=== PATIENT | male | born 1985 | race Caucasian/White ===

== ENCOUNTER 2016-09-05 07:19 | Inpatient (IN) | payer SELFPAY ==
[2016-09-05] VITALS (11 sets, daily range): BP systolic 104–122; BP diastolic 61–70; PULSE 77–124; RESP 12–20; TEMP 93.4–99.3; O2SAT 100
[~2016-09-05] VITALS: Ht 175.3 cm; Wt 63.4 kg
[~2016-09-05 07:19] MED LIST: CYCL-36 PO; DARV PO; Z.0.NO CURRENT MEDS
[2016-09-05] MEDS ORDERED: PROPOFOL 1000 MG/100 ML INJ 100 ML ONE (07:25)
[2016-09-05] MEDS ORDERED: GENTAMICIN 80 MG PREMIX 100 ML ONE (07:25)
[2016-09-05] MEDS ORDERED: ceFAZolin 2 GM PREMIX 50 ML ONE (07:25)
[2016-09-05] MEDS ORDERED: DIPHTH/TETANUS/ACEL PERTUSSIS (BOOSTER) 0.5 ML VIAL/PFS IM ONE (07:25)
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
[2016-09-05 07:53] LABS: AUTOMATED NEUTROPHIL # 22.5 TH/MM3 (1.8-7.7); BASOPHIL # 0.1 TH/MM3 (0-0.2); BASOPHIL % 0.5 % (0.0-2.0); EOSINOPHIL # 0.3 TH/MM3 (0-0.4); EOSINOPHIL % 0.9 % (0.0-4.0); HEMATOCRIT 35.6 % (39.0-51.0); HEMO FLAGS DIFF FINAL; LYMPH % 11.4 % (9.0-44.0); LYMPHOCYTE # 3.1 TH/MM3 (1.0-4.8); MEAN CELL VOLUME 87.2 FL (80.0-100.0); MEAN CORPUSCULAR HEMOGLOBIN 28.1 PG (27.0-34.0); MEAN CORPUSCULAR HGB CONC 32.3 % (32.0-36.0); MONO % 4.6 % (0.0-8.0); NEUT % 82.6 % (16.0-70.0); PLATELET COUNT 308 TH/MM3 (150-450); RED BLOOD COUNT 4.08 MIL/MM3 (4.50-5.90); RED CELL DISTRIBUTION WIDTH 14.9 % (11.6-17.2); WHITE BLOOD COUNT 27.3 TH/MM3 (4.0-11.0)
[2016-09-05 07:55] LABS: I-STAT POTASSIUM 3.6 MMOL/L (3.5-4.9)
[2016-09-05 07:59] LABS: APTT (PATIENT) 23.3 SEC (24.3-30.1)
[2016-09-05] MEDS ORDERED: IOHEXOL 350 MG/ML 10 ML VIAL (for RAD DIAG) IV ONE (08:12)
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
[2016-09-05] MEDS ORDERED: GENTAMICIN SULFATE 80 MG/2 ML VIAL IRRIGATION ONE (10:25)
[2016-09-05] MEDS ORDERED: GENTAMICIN SULFATE 80 MG/2 ML VIAL ONE (10:37)
[2016-09-05] MEDS ORDERED: ACETAMINOPHEN 1000 MG/100 ML VIAL IV ONE (10:37)
[2016-09-05] MEDS ORDERED: KETAMINE HCL 500 MG/5 ML VIAL ONE (10:37)
[2016-09-05 10:43] LABS: BLOOD GAS BASE EXCESS -6.5 mmol/L (-2-2); BLOOD GAS CARBOXYHEMOGLOBIN 1.8 % (0-4); BLOOD GAS HCO3 19 mmol/L (22-26); BLOOD GAS METHEMOGLOBIN 1.5 % (0-2); BLOOD GAS O2 HGB SATURATION 96 % (90-100); BLOOD GAS OXYGEN CONTENT 11.7 Vol % (12.0-20.0); BLOOD GAS PCO2 44 mmHg (38-42); BLOOD GAS PO2 336 mmHg (61-120); CRITICAL VALUE YES; OXYGEN DEVICE OR; TEMP CORR TO 98.6
[2016-09-05 10:44] LABS: STAT YES; VENT SETTINGS OR
[2016-09-05] MEDS ORDERED: PROPOFOL 200 MG/20 ML AMP IV ONE (10:49)
[2016-09-05] MEDS ORDERED: PHENYLEPH/NS 1000 MCG/10 ML SYR IV ONE (10:49)
[2016-09-05] MEDS ORDERED: PHENYLEPHRINE HCL 10 MG/ML VIAL IV ONE (10:49)
[2016-09-05] MEDS ORDERED: LACTATED RINGER'S 1000 ML INJ 2,000 ML IV ONE (10:49)
[2016-09-05] MEDS ORDERED: NORMOSOL R INJ 1,000 ML IV ONE (10:50)
[2016-09-05] MEDS ORDERED: BACITRACIN TOP OINT 15 GM TUBE ONE (11:05)
[2016-09-05 11:12] LABS: BLOOD GAS BASE EXCESS -5.7 mmol/L (-2-2); BLOOD GAS CARBOXYHEMOGLOBIN 1.8 % (0-4); BLOOD GAS HCO3 20 mmol/L (22-26); BLOOD GAS METHEMOGLOBIN 1.3 % (0-2); BLOOD GAS O2 HGB SATURATION 96 % (90-100); BLOOD GAS OXYGEN CONTENT 12.1 Vol % (12.0-20.0); BLOOD GAS PCO2 42 mmHg (38-42); BLOOD GAS PO2 234 mmHg (61-120); BLOOD GAS TOTAL HGB 8.5 G/DL (12.0-16.0); CRITICAL VALUE YES; TEMP CORR TO 98.6
[2016-09-05 11:13] LABS: DRAW SITE ALINE; FIO2 70 %; OXYGEN DEVICE ANESTHESIA; STAT YES
[2016-09-05 11:26] LABS: HEMATOCRIT 26.3 % (39.0-51.0); MEAN CORPUSCULAR HEMOGLOBIN 28.5 PG (27.0-34.0); MEAN CORPUSCULAR HGB CONC 32.8 % (32.0-36.0); PLATELET COUNT 218 TH/MM3 (150-450); RED BLOOD COUNT 3.02 MIL/MM3 (4.50-5.90); RED CELL DISTRIBUTION WIDTH 14.4 % (11.6-17.2); REVIEW FLAG FINAL; WHITE BLOOD COUNT 17.9 TH/MM3 (4.0-11.0)
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
[2016-09-05] MEDS ORDERED: SODIUM CHLORIDE 0.9% FLUSH 10 ML FLUSH IV FLUSH PRN (12:15)
[2016-09-05] MEDS ORDERED: Post-op Orders (for Pharmacy) MISC XX ONE (12:15)
[2016-09-05] MEDS ORDERED: NALOXONE HCL 0.4 MG/ML AMP IV PRN (12:15)
[2016-09-05] MEDS: SODIUM CHLOR 0.9% 1000 ML INJ 1,000 ML IV SCH ×2 (12:15→22:55)
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
[2016-09-05] MEDS: D5-1/2 NS + KCL 20 MEQ INJ 1,000 ML IV SCH ×2 (12:49→21:19)
[2016-09-05] MEDS: PANTOPRAZOLE SODIUM 40 MG VIAL IV SCH (12:53)
[2016-09-05] MEDS: fentaNYL DRIP 250 ML IV SCH (12:54)
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
--- NOTE | 2016-09-05 15:13 | RADRPT ---
EXAM DATE/TIME: 09/05/2016 11:10 [facility] COMPARISON: FEMUR LEFT (1 VW), September 05, 2016, 7:15. TIBIA/FIBULA LEFT (1 VW), September 05, 2016, 11:10. INDICATIONS : External fixator, left distal femur. MEDICAL HISTORY : None. SURGICAL HISTORY : None. ENCOUNTER: Subsequent ACUITY: 1 day PAIN SCORE: Non-responsive. LOCATION: Left leg. FINDINGS: A single limited lateral view of the left distal femur demonstrates the comminuted fracture of the le ft distal femur. Skin maday are noted within the soft tissues. CONCLUSION: Comminuted fracture involving the left distal femur. Segundo Hermosillo MD on September 05, 2016 at 15:09 Board Certified Radiologist. This report was verified electronically.
--- NOTE | 2016-09-05 15:18 | RADRPT ---
EXAM DATE/TIME: 09/05/2016 11:10 [facility] COMPARISON: TIBIA/FIBULA LEFT (1 VW), September 05, 2016, 7:15. INDICATIONS : External fixator, left tibia. MEDICAL HISTORY : None. SURGICAL HISTORY : None. ENCOUNTER: Subsequent ACUITY: 1 day PAIN SCORE: Non-responsive. LOCATION: Left tibia. FINDINGS: A single limited fluoroscopic view of the comminuted fracture of the left mid tibia is noted. CONCLUSION: 1... Comminuted fracture involving the left mid tibia. Segundo Hermosillo MD on September 05, 2016 at 15:11 Board Certified Radiologist. This report was verified electronically.
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
[2016-09-05] MEDS: ceFAZolin 2 GM PREMIX 50 ML IV SCH ×2 (15:57→23:24)
[2016-09-05] MEDS ORDERED: fentaNYL CITRATE 250 MCG/5 ML AMP ONE (16:00)
[2016-09-05] MEDS: GENTAMICIN 80 MG PREMIX 100 ML IV SCH ×2 (16:25→23:25)
[2016-09-05] MEDS ORDERED: RESP: ALBUTEROL 2.5 MG/IPRATROPIUM 0.5 MG NEB (PRN) NEB (16:45)
[2016-09-05 17:17] LABS: HEMATOCRIT 35.6 % (39.0-51.0); REVIEW FLAG FINAL
[2016-09-05] MEDS: PROPOFOL 1000 MG/100 ML INJ 100 ML IV SCH (21:17)
[2016-09-05] MEDS: SODIUM CHLORIDE 0.9% FLUSH 10 ML FLUSH IV FLUSH SCH (21:17)
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
[2016-09-06] VITALS (17 sets, daily range): BP systolic 101–151; BP diastolic 57–88; PULSE 105–126; RESP 13–20; TEMP 98.6–100.2; O2SAT 93–100
[2016-09-06 02:35] LABS: HEMATOCRIT 34.4 % (39.0-51.0); REVIEW FLAG FINAL
[2016-09-06] MEDS: fentaNYL DRIP 250 ML IV SCH (02:40)
[2016-09-06] MEDS: PROPOFOL 1000 MG/100 ML INJ 100 ML IV SCH (02:40)
[2016-09-06 05:21] LABS: AUTOMATED NEUTROPHIL # 11.3 TH/MM3 (1.8-7.7); BASOPHIL % 0.2 % (0.0-2.0); EOSINOPHIL # 0.1 TH/MM3 (0-0.4); HEMATOCRIT 33.4 % (39.0-51.0); HEMO FLAGS DIFF FINAL; LYMPH % 14.7 % (9.0-44.0); LYMPHOCYTE # 2.2 TH/MM3 (1.0-4.8); MEAN CELL VOLUME 86.5 FL (80.0-100.0); MEAN CORPUSCULAR HEMOGLOBIN 29.2 PG (27.0-34.0); MEAN CORPUSCULAR HGB CONC 33.8 % (32.0-36.0); MONO % 7.9 % (0.0-8.0); NEUT % 76.2 % (16.0-70.0); PLATELET COUNT 188 TH/MM3 (150-450); RED BLOOD COUNT 3.86 MIL/MM3 (4.50-5.90); WHITE BLOOD COUNT 14.8 TH/MM3 (4.0-11.0)
[2016-09-06 05:28] LABS: BICARBONATE 23.1 MEQ/L (21.0-32.0); POTASSIUM 4.3 MEQ/L (3.5-5.1)
[2016-09-06 05:34] LABS: INDIRECT BILIRUBIN 0.1 MG/DL (0.0-0.8); TOTAL BILIRUBIN ADULT 0.2 MG/DL (0.2-1.0)
[2016-09-06] MEDS: ceFAZolin 2 GM PREMIX 50 ML IV SCH ×3 (07:00→23:18)
[2016-09-06] MEDS: GENTAMICIN 80 MG PREMIX 100 ML IV SCH ×3 (07:00→23:18)
--- NOTE | 2016-09-06 07:10 | PD.ORT.PN ---
Subjective Subjective Remarks Patient is intubated and sedated. Appears comfortable. An skeletal traction. Objective Vitals Vital Signs Date Time Temp Pulse Resp B/P Pulse Ox O2 Delivery O2 Flow Rate FiO2 09/06/16 06:00 114 09/06/16 04:07 100 45 09/06/16 04:00 99.3 116 20 101/62 100 09/06/16 04:00 50 09/06/16 04:00 116 09/06/16 02:00 125 09/06/16 01:08 100 45 09/06/16 00:00 100.0 126 20 104/62 100 09/06/16 00:00 126 09/06/16 00:00 50 09/05/16 22:00 124 09/05/16 20:00 111 09/05/16 20:00 99.3 112 20 104/61 100 09/05/16 20:00 50 09/05/16 19:43 100 45 09/05/16 19:00 100 Mechanical Ventilator 50 09/05/16 18:00 111 09/05/16 16:00 97.5 108 20 110/70 100 09/05/16 16:00 100 Mechanical Ventilator 50 09/05/16 16:00 108 09/05/16 15:56 100 50 09/05/16 14:00 89 09/05/16 12:30 93.4 77 12 122/67 100 09/05/16 12:29 100 50 09/05/16 07:50 100 60 09/05/16 07:30 100 15.00 98 I/O 09/05/16 09/05/16 09/05/16 09/06/16 09/06/16 09/06/16 07:00 15:00 23:00 07:00 15:00 23:00 Intake Total 206 ml 1069 ml 1118 ml Output Total 675 ml 525 ml 410 ml Balance -469 ml 544 ml 708 ml Intake IV Total 206 ml 1069 ml 1118 ml Output Urine Total 560 ml 400 ml 300 ml Gastric Drainage Total 100 ml 100 ml 100 ml Chest Tube Drainage Total 15 ml 25 ml 10 ml Result Diagram: 09/06/16 0445 09/06/16 0445 Other Results Laboratory Tests Test 09/05/16 07:20 Prothrombin Time 11.0 SEC (9.8-11.6) Prothromb Time International 1.0 RATIO Ratio Imaging Last 24 hours Impressions Thoracic Spine CT 09/05/16743 Signed Impressions: Service Date/Time: Monday, September 05, 2016 07:53 - CONCLUSION: Old compression deformity of L1. No evidence of acute bony injury. Subcutaneous emphysema within the right side along the back. Malik De La Garza MD Lumbar Spine CT 09/05/16743 Signed Impressions: Service Date/Time: Monday, September 05, 2016 07:53 - CONCLUSION: Old compression deformity of L1. No acute bony abnormality. Malik De La Garza MD Head CT 09/05/16743 Signed Impressions: Service Date/Time: Monday, September 05, 2016 07:47 - CONCLUSION: No evidence of acute intracranial trauma Intact skull Malik De La Garza MD Cervical Spine CT 09/05/16743 Signed Impressions: Service Date/Time: Monday, September 05, 2016 07:49 - CONCLUSION: Normal CT of the cervical spine. No evidence of significant soft tissue or bony trauma. Malik De La Garza MD Chest CT 09/05/16721 Signed Impressions: Service Date/Time: Monday, September 05, 2016 07:53 - CONCLUSION: 1. Soft tissue injury with a large laceration along the right lateral chest wall. Large foreign body is identified within the defect. 2. Minimal airspace disease left lung base. 3. No other significant soft tissue injury. 4. Intact osseous structures. Malik De La Garza MD Abdomen/Pelvis CT 09/05/16721 Signed Impressions: Service Date/Time: Monday, September 05, 2016 07:47 - CONCLUSION: 1. Hyperdense focus in the right hepatic lobe beneath the dome of the diaphragm most characteristic of a small hemangioma. Focal contrast extravasation cannot be completely excluded however there are no other surrounding traumatic changes. 2. Large soft tissue defect with associated subcutaneous cutaneous emphysema along the right lateral chest wall consistent with laceration and tissue injury. Small foreign bodies are seen. 3. Intertrochanteric fracture of the proximal left femur. 4. No other evidence of significant soft tissue or bony trauma Malik De La Garza MD Objective Remarks Left leg: An skeletal traction. External fixator in place. Pin sites clean. Dressings dry. dorsalis pedis pulse palpable.. Right leg: In long leg splint. Calf and thigh compartments soft. Good capillary refill right foot. Assessment & Plan Assessment and Plan Left hip intertrochanteric fracture--continue skeletal traction, we'll plan on intramedullary nail fixation or Sunday Open left distal femur fracture--continue IV antibiotics, will need open reduction internal fixation next week Open left tibia shaft fracture--- continue IV antibiotics--will need intramedullary nail fixation Closed right tibia shaft fracture--plan in spite of the nail fixation or Sunday Bill Esteves MD Sep 06, 2016 07:10
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
[2016-09-06] MEDS ORDERED: MAGNESIUM OXIDE 400 MG TAB PO PRN (07:15)
[2016-09-06] MEDS ORDERED: POTASSIUM CHLOR 40 MEQ PREMIX 100 ML IV PRN ×2 (07:15)
[2016-09-06] MEDS ORDERED: POTASSIUM PHOSPHATE INJ 30 MMOL in SODIUM CHLOR 0.9% 250 ML INJ 250 ML IV PRN (07:15)
[2016-09-06] MEDS ORDERED: POTASSIUM CHLOR 20 MEQ PREMIX 100 ML IV PRN ×2 (07:15)
[2016-09-06] MEDS ORDERED: POTASSIUM PHOSPHATE MONOBASIC 500 MG TAB PO/TUBE PRN (07:15)
[2016-09-06] MEDS ORDERED: POTASSIUM CHLORIDE 25 MEQ EFFERVESCENT TAB PO PRN (07:15)
[2016-09-06] MEDS ORDERED: MAGNESIUM SULFATE INJ 4 GM in SODIUM CHLORIDE 0.9% INJ 92 ML IV PRN (07:15)
[2016-09-06] MEDS ORDERED: MAGNESIUM SULFATE INJ 2 GM in SODIUM CHLORIDE 0.9% INJ 96 ML IV PRN (07:15)
[2016-09-06] MEDS ORDERED: SODIUM PHOSPHATE INJ 30 MMOL in SODIUM CHLOR 0.9% 250 ML INJ 240 ML IV PRN (07:15)
[2016-09-06] MEDS ORDERED: POTASSIUM PHOSPHATE MONOBASIC 500 MG TAB PO PRN (07:15)
[2016-09-06] MEDS: D5-1/2 NS + KCL 20 MEQ INJ 1,000 ML IV SCH ×2 (07:19→18:00)
[2016-09-06] MEDS ORDERED: SODIUM CHLOR 0.9% 1000 ML INJ 1,000 ML IV ONE (07:45)
[2016-09-06 07:50] LABS: AMPHETAMINE, URINE POS (NEG); BARBITURATES, URINE NEG (NEG); COCAINE, URINE NEG (NEG)
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
[2016-09-06] MEDS: THIAMINE HCL 100 MG TAB PO SCH (08:19)
[2016-09-06] MEDS: FOLIC ACID 1 MG TAB PO SCH (08:19)
[2016-09-06] MEDS: PIPERACIL-TAZO 3.375 GM PREMIX 50 ML IV SCH ×3 (08:19→20:43)
[2016-09-06] MEDS: SODIUM CHLORIDE 0.9% FLUSH 10 ML FLUSH IV FLUSH SCH ×2 (08:20→20:54)
[2016-09-06] MEDS: DOCUSATE SODIUM 100 MG/10 ML UDC PO SCH ×2 (08:20→20:54)
[2016-09-06] MEDS ORDERED: MIDAZOLAM HCL 5 MG/ML VIAL (1 ML) ONE (10:19)
[2016-09-06] MEDS ORDERED: ENOXAPARIN SODIUM 30 MG/0.3 ML SYRINGE SQ SCH (11:00)
[2016-09-06] MEDS ORDERED: MIDAZOLAM HCL 5 MG/ML VIAL (1 ML) IV PUSH ONE (11:15)
[2016-09-06] MEDS ORDERED: NALOXONE HCL 0.4 MG/ML AMP IV PRN (13:45)
[2016-09-06] MEDS ORDERED: diphenhydrAMINE HCL 50 MG/ML VIAL IV PRN (14:00)
[2016-09-06] MEDS: PCA - TOTAL MG DILAUDID DELIVERED PER SHIFT OTHER SCH ×2 (14:00→22:00)
[2016-09-06] MEDS: PANTOPRAZOLE SODIUM 40 MG VIAL IV SCH (14:09)
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
[2016-09-06] MEDS: HYDROmorphone HCL PCA 6 MG/30 ML IV SCH ×2 (16:51→20:56)
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
[2016-09-06] MEDS ORDERED: CHLORHEXIDINE GLUCONATE 2 % 1 PACK (2 CLOTHS) TOPICAL PRN (23:15)
[2016-09-06] MEDS ORDERED: SODIUM CHLORID 0.9% 500 ML IV PRN (23:15)
[2016-09-06] MEDS ORDERED: INSULIN HUMAN REGULAR 1,000 UNITS/10 ML VIAL SQ PRN (23:15)
[2016-09-06] MEDS ORDERED: LACTATED RINGER'S 1000 ML IV PRN (23:15)
[2016-09-06] MEDS ORDERED: POVIDONE IODINE 5% (ANTISEPSIS KIT) 4 APPLICATIONS EACH NARE PRN (23:15)
[2016-09-07] VITALS (7 sets, daily range): BP systolic 120–151; BP diastolic 73–82; PULSE 111–130; RESP 16–21; TEMP 96.9–99.5; O2SAT 94–100
[2016-09-07] MEDS: HYDROmorphone HCL PCA 6 MG/30 ML IV SCH ×2 (01:23→11:24)
[2016-09-07] MEDS: PIPERACIL-TAZO 3.375 GM PREMIX 50 ML IV SCH ×5 (01:40→21:04)
[2016-09-07] MEDS: ceFAZolin 2 GM PREMIX 50 ML IV SCH ×3 (05:59→22:39)
[2016-09-07] MEDS: PCA - TOTAL MG DILAUDID DELIVERED PER SHIFT OTHER SCH ×2 (05:59→21:04)
[2016-09-07] MEDS: GENTAMICIN 80 MG PREMIX 100 ML IV SCH ×3 (05:59→22:38)
--- NOTE | 2016-09-07 06:26 | RADRPT ---
EXAM DATE/TIME: 09/07/2016 05:12 [facility] COMPARISON: CHEST SINGLE AP, September 06, 2016, 7:09. INDICATIONS : Shortness of breath MEDICAL HISTORY : None. SURGICAL HISTORY : None. ENCOUNTER: Subsequent ACUITY: 2 days PAIN SCORE: 10/10 LOCATION: Bilateral chest FINDINGS: Right IJ line is present with tip overlapping the expected region of the SVC. Chest tube is present o n the right side. No definite pneumothorax is seen for technique. Mild left lung base atelectasis and /or infiltrate is seen. Heart and mediastinum are unremarkable for technique. The rest of the examina tion has not significantly changed. CONCLUSION: Mild left lung base atelectasis and/or infiltrate is seen. Kalyan Horan MD on September 07, 2016 at 6:24 Board Certified Radiologist. This report was verified electronically.
--- NOTE | 2016-09-07 06:49 | PD.ORT.PN ---
Subjective Subjective Remarks Awake and alert Objective Vitals Vital Signs Date Time Temp Pulse Resp B/P Pulse Ox O2 Delivery O2 Flow Rate FiO2 09/07/16 05:59 16 09/07/16 04:30 99.3 130 21 145/74 94 09/07/16 01:53 16 09/07/16 01:23 16 09/07/16 00:30 96.9 128 20 151/79 95 09/06/16 22:00 16 09/06/16 20:56 16 09/06/16 20:30 99.5 123 18 151/88 93 09/06/16 18:02 100 Nasal Cannula 2.00 09/06/16 18:00 114 09/06/16 16:51 12 09/06/16 16:00 100.2 112 13 141/67 100 09/06/16 16:00 112 09/06/16 15:00 100 Nasal Cannula 4.00 09/06/16 14:00 111 09/06/16 12:25 100 40 09/06/16 12:00 99.7 116 20 128/66 100 09/06/16 12:00 116 09/06/16 12:00 45 09/06/16 10:00 111 09/06/16 08:08 40 09/06/16 08:00 45 09/06/16 08:00 98.6 105 20 110/57 100 09/06/16 08:00 105 09/06/16 08:00 45 09/06/16 07:17 100 45 09/06/16 07:00 100 Mechanical Ventilator 50 I/O 09/06/16 09/06/16 09/06/16 09/07/16 09/07/16 09/07/16 07:00 15:00 23:00 07:00 15:00 23:00 Intake Total 1118 ml 1906 ml 240 ml 480 ml Output Total 410 ml 645 ml 550 ml 1100 ml Balance 708 ml 1261 ml -310 ml -620 ml Intake Oral 240 ml 480 ml IV Total 1118 ml 1906 ml Output Urine Total 300 ml 625 ml 550 ml 1100 ml Gastric Drainage Total 100 ml 0 ml Chest Tube Drainage Total 10 ml 20 ml # Bowel Movements 0 0 Result Diagram: 09/06/1644409/06/16444 Imaging Last 24 hours Impressions Thoracic Spine CT 09/05/16 0744 Signed Impressions: Service Date/Time: Monday, September 05, 2016 07:53 - CONCLUSION: Old compression deformity of L1. No evidence of acute bony injury. Subcutaneous emphysema within the right side along the back. Malik De La Garza MD Lumbar Spine CT 09/05/16743 Signed Impressions: Service Date/Time: Monday, September 05, 2016 07:53 - CONCLUSION: Old compression deformity of L1. No acute bony abnormality. Malik De La Garza MD Head CT 09/05/16743 Signed Impressions: Service Date/Time: Monday, September 05, 2016 07:47 - CONCLUSION: No evidence of acute intracranial trauma Intact skull Malik De La Garza MD Cervical Spine CT 09/05/16743 Signed Impressions: Service Date/Time: Monday, September 05, 2016 07:49 - CONCLUSION: Normal CT of the cervical spine. No evidence of significant soft tissue or bony trauma. Malik De La Garza MD Chest CT 09/05/16721 Signed Impressions: Service Date/Time: Monday, September 05, 2016 07:53 - CONCLUSION: 1. Soft tissue injury with a large laceration along the right lateral chest wall. Large foreign body is identified within the defect. 2. Minimal airspace disease left lung base. 3. No other significant soft tissue injury. 4. Intact osseous structures. Malik De La Garza MD Abdomen/Pelvis CT 09/05/16721 Signed Impressions: Service Date/Time: Monday, September 05, 2016 07:47 - CONCLUSION: 1. Hyperdense focus in the right hepatic lobe beneath the dome of the diaphragm most characteristic of a small hemangioma. Focal contrast extravasation cannot be completely excluded however there are no other surrounding traumatic changes. 2. Large soft tissue defect with associated subcutaneous cutaneous emphysema along the right lateral chest wall consistent with laceration and tissue injury. Small foreign bodies are seen. 3. Intertrochanteric fracture of the proximal left femur. 4. No other evidence of significant soft tissue or bony trauma Malik De La Garza MD Objective Remarks Left leg: An skeletal traction. External fixator in place. Pin sites clean. Dressings dry. dorsalis pedis pulse palpable.. Intact sensation. No dorsiflexion or plantar flexion of foot or toes Right leg: In long leg splint. Calf and thigh compartments soft. Good capillary refill right foot. Assessment & Plan Assessment and Plan Left hip intertrochanteric fracture--continue skeletal traction, we'll plan on intramedullary nail fixation today Open left distal femur fracture--continue IV antibiotics, will need open reduction internal fixation next week Open left tibia shaft fracture--- continue IV antibiotics--will need intramedullary nail fixation Closed right tibia shaft fracture--plan in spite of the nail fixation today Nothing by mouth Hold Lovenox Sign consents Thien Mae Jr. Sep 07, 2016 06:49
[2016-09-07 08:00] LABS: AUTOMATED NEUTROPHIL # 15.3 TH/MM3 (1.8-7.7); BASOPHIL % 0.2 % (0.0-2.0); EOSINOPHIL # 0.1 TH/MM3 (0-0.4); EOSINOPHIL % 0.5 % (0.0-4.0); HEMATOCRIT 25.1 % (39.0-51.0); HEMO FLAGS DIFF FINAL; LYMPH % 11.3 % (9.0-44.0); LYMPHOCYTE # 2.2 TH/MM3 (1.0-4.8); MEAN CELL VOLUME 87.2 FL (80.0-100.0); MEAN CORPUSCULAR HEMOGLOBIN 28.8 PG (27.0-34.0); MEAN CORPUSCULAR HGB CONC 33.1 % (32.0-36.0); MONO % 8.9 % (0.0-8.0); NEUT % 79.1 % (16.0-70.0); PLATELET COUNT 164 TH/MM3 (150-450); RED BLOOD COUNT 2.88 MIL/MM3 (4.50-5.90); RED CELL DISTRIBUTION WIDTH 14.3 % (11.6-17.2); WHITE BLOOD COUNT 19.3 TH/MM3 (4.0-11.0)
[2016-09-07] MEDS ORDERED: GENTAMICIN SULFATE 80 MG/2 ML VIAL ONE (08:12)
[2016-09-07] MEDS ORDERED: BACITRACIN TOP OINT 15 GM TUBE ONE (08:12)
[2016-09-07 08:26] LABS: BICARBONATE 27.7 MEQ/L (21.0-32.0); CALCIUM-PROTEIN CORRECTED 8.5 MG/DL (8.5-10.1); MAGNESIUM 1.8 MG/DL (1.5-2.5); POTASSIUM 3.8 MEQ/L (3.5-5.1); TOTAL BILIRUBIN ADULT 0.3 MG/DL (0.2-1.0)
[2016-09-07] MEDS: DOCUSATE SODIUM 100 MG/10 ML UDC PO SCH (09:00)
[2016-09-07] MEDS: THIAMINE HCL 100 MG TAB PO SCH (09:00)
[2016-09-07] MEDS: FOLIC ACID 1 MG TAB PO SCH (09:00)
[2016-09-07] MEDS: SODIUM CHLORIDE 0.9% FLUSH 10 ML FLUSH IV FLUSH SCH ×2 (09:00→21:00)
[2016-09-07] MEDS: D5-1/2 NS + KCL 20 MEQ INJ 1,000 ML IV SCH ×5 (10:32→22:40)
--- NOTE | 2016-09-07 10:39 | PD.OP ---
Operative Report Date of Surgery: Sep 07, 2016 Preoperative Diagnosis: Displaced left hip intertrochanteric fracture, displaced right tibia shaft fracture Postoperative Diagnosis: Procedure: Reduction and intramedullary nail fixation left hip intertrochanteric fracture, reduction and intramedullary nail fixation right tibia Anesthesia: Gen. Surgeon: Bill Gaxiola An Employee Sponsor Or Advocate And(s): RUSS Smith PA-C The surgical procedure was assisted by my physician acute care nursing assistant. My P.A. presence was necessary throughout this case for the manipulation and positioning of the surgical extremity. My P.A. was assisting me throughout the duration of this procedure. The skill set of a physician acute care nursing assistant was medically necessary to complete this procedure. During the surgical case the packaging technician was working at the back table and the physician acute care nursing assistant was directly assisting me. Operation and Findings: Implants used: [10]mm 130 Synthes TFNA short troch nail, 10 mm x 345 mm tibial nail Plan of activity: Nonweightbearing left leg, weight-bear as tolerated right leg for transfers Patient was seen and evaluated preoperatively. The patient has significant hip pain from left intertrochanteric hip fracture. The risk and benefits of surgery were discussed in depth with the patient to include bleeding infection nonunion malunion and need for hip replacement painful hardware as well as medical competitions including but not stroke heart attack and . Informed consent was obtained. Operative site was marked. Patient was brought to the operating room and placed on fracture table. IV sedation was administered by anesthesiologist. Timeout procedure was performed. Hip and leg were prepped with alcohol followed by DuraPrep and draped in the usual sterile fashion. IV antibiotics were given prior to incision. Procedure began with reduction of fracture. Traction was applied. The leg was manipulated to achieve reduction. Excellent reduction was achieved. Fluoroscopy was used to confirm reduction. A three inch incision was made proximal to the trochanter. Subcutaneous tissue was dissected bluntly. Guidepin was placed at the tip of the trochanter and advanced into the femoral canal. Fluoroscopy confirmed appropriate guidepin placement. A opening reamer was placed over the guidepin. The Synthes TFNA nail was attached to the insertion handle. Nail was now placed through the tip of the trochanter into the femoral canal. Fluoroscopy confirmed appropriate nail placement. A second incision was made over the lateral thigh. Cannulas were placed through the insertion handle down to the femur. Guidepin was now placed through the femoral nail into the center of the femoral head. Fluoroscopy confirmed appropriate guidepin placement. Screw length was measured. Cannulated drill was placed over the guidepin. Appropriate length lag screw was now placed. Traction was released and compression was applied. The set screw was now tightened in dynamic mode. Using the insertion handle as a guide a distal interlocking screw was drilled and placed. Final fluoroscopy revealed well aligned fracture with well-placed hardware. Incision was closed with 3-0 Vicryl and maday. Sterile dressings were applied. Next attention was turned to the right tibia. Patient was repositioned. The right leg was prepped with alcohol Hibiclens and draped in usual sterile fashion. Timeout procedure was performed. Procedure began with reduction of fracture. Traction was applied. Fracture was manipulated and reduced. There was comminution of the fracture. The fracture reduced and excellent alignment was achieved. Next a 3 cm incision was made proximal to the patella. Quadriceps tendon was split in line with fibers. Cannulas were placed in the patellofemoral joint to protect the articular surface at all times. A guidepin was placed into the tibia and advanced in the tibial canal. Fluoroscopy was used to confirm appropriate guidepin placement. An opening reamer was used to open the tibial canal. A ball-tipped guidewire was advanced down the tibial canal. Guidepin was passed across the fracture site into the center of the distal tibia. Fluoroscopy confirmed guidepin placement. The nail length was now measured. The fracture was now held in a reduced position and the canal was reamed. The canal was reamed up to appropriate size. A Synthes nail was now selected. Next the nail was fully seated. Using perfect chippewa-cree technique 3 distal interlocking screws were placed. The nail was now gently back slapped to apply compression. Using the insertion handle as a guide 2 proximal interlocking screws were placed. Fluoroscopy confirmed excellent of fracture with well-placed hardware. Incisions and the knee joint were thoroughly irrigated with sterile saline. Fascia was closed with #1 Vicryl, subcutaneous tissues closed with 3-0 Vicryl and skin was closed with maday. Sterile dressings were applied. Patient was awakened and transferred to recovery in stable condition. Bill Gaxiola MD Sep 07, 2016 10:39
[2016-09-07] MEDS ORDERED: fentaNYL CITRATE 250 MCG/5 ML AMP ONE (11:12)
[2016-09-07] MEDS ORDERED: DO NOT ADM ANY ANTICOAGULANT DRUGS PRN (11:15)
[2016-09-07] MEDS ORDERED: PROPOFOL 200 MG/20 ML AMP IV ONE (12:00)
[2016-09-07] MEDS ORDERED: ONDANSETRON HCL 4 MG/2 ML VIAL IV PUSH ONE (12:00)
[2016-09-07] MEDS ORDERED: PHENYLEPH/NS 1000 MCG/10 ML SYR IV ONE (12:00)
[2016-09-07] MEDS ORDERED: ENOXAPARIN SODIUM 40 MG/0.4 ML SYRINGE SQ SCH (14:00)
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
[2016-09-07] MEDS: PANTOPRAZOLE SODIUM 40 MG VIAL IV SCH (14:34)
[2016-09-07] MEDS: LACTULOSE SYRUP 20 GM/30 ML CUP PO SCH (14:45)
--- NOTE | 2016-09-07 15:13 | RADRPT ---
EXAM DATE/TIME: 09/07/2016 09:36 [facility] COMPARISON: CHEST SINGLE AP, September 07, 2016, 5:12. INDICATIONS : Left hip troch nail. MEDICAL HISTORY : None. SURGICAL HISTORY : None. ENCOUNTER: Subsequent ACUITY: 3 days PAIN SCORE: Non-responsive. LOCATION: Left hip. FINDINGS: The patient is post ORIF of a left hip fracture. Alignment post fixation is excellent. CONCLUSION: 1. Excellent Alignment of the patient's left hip fracture. Hamilton Pereyra MD on September 07, 2016 at 15:10 Board Certified Radiologist. This report was verified electronically.
--- NOTE | 2016-09-07 16:16 | RADRPT ---
EXAM DATE/TIME: 09/07/2016 09:36 [facility] COMPARISON: No previous studies available for comparison. INDICATIONS : Right tibia IM nail. MEDICAL HISTORY : None. SURGICAL HISTORY : None. ENCOUNTER: Subsequent ACUITY: 3 days PAIN SCORE: Non-responsive. LOCATION: Right tibia. FINDINGS: Intramedullary kelsey and fixation screws are noted within the right tibia in good position. CONCLUSION: Status post placement of intramedullary kelsey within the right tibia which is adequate in position. Segundo Hermosillo MD on September 07, 2016 at 16:10 Board Certified Radiologist. This report was verified electronically.
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
[2016-09-07] MEDS: DOCUSATE SODIUM 50 MG/SENNA 8.6 MG TAB PO SCH (21:04)
[2016-09-08] VITALS (7 sets, daily range): BP systolic 116–145; BP diastolic 57–84; PULSE 99–122; RESP 16–20; TEMP 96.7–100; O2SAT 93–100
[2016-09-08] MEDS: HYDROmorphone HCL PCA 6 MG/30 ML IV SCH ×2 (00:50→14:08)
[2016-09-08] MEDS: PIPERACIL-TAZO 3.375 GM PREMIX 50 ML IV SCH ×2 (02:11→08:00)
[2016-09-08] MEDS: ceFAZolin 2 GM PREMIX 50 ML IV SCH ×3 (05:50→20:33)
[2016-09-08] MEDS: PCA - TOTAL MG DILAUDID DELIVERED PER SHIFT OTHER SCH ×3 (05:51→21:48)
[2016-09-08] MEDS: GENTAMICIN 80 MG PREMIX 100 ML IV SCH ×3 (05:51→23:25)
[2016-09-08 06:28] LABS: REVIEW FLAG FINAL
[2016-09-08 06:31] LABS: HEMATOCRIT 19.6 % (39.0-51.0)
--- NOTE | 2016-09-08 06:40 | RADRPT ---
EXAM DATE/TIME: 09/08/2016 05:49 [facility] COMPARISON: CHEST SINGLE AP, September 07, 2016, 5:12. INDICATIONS : Evaluate pnuemothorax, chest tubes. MEDICAL HISTORY : None. SURGICAL HISTORY : None. ENCOUNTER: Subsequent ACUITY: 3 days PAIN SCORE: 7/10 LOCATION: Bilateral chest FINDINGS: The cardiac silhouette is normal in transverse diameter. The lungs are free of acute parenchymal opac ity. No effusions are identified. A right chest tube is in place. There is no evidence of pneumothora x. There is subsegmental atelectasis in the left base. CONCLUSION: 1. There is no evidence of pneumothorax. Robert Aguilar MD on September 08, 2016 at 6:38 Board Certified Radiologist. This report was verified electronically.
--- NOTE | 2016-09-08 06:44 | PD.ORT.PN ---
Subjective Subjective Remarks Patient is awake. Appears relatively comfortable. Complains of pain in both legs. Objective Vitals Vital Signs Date Time Temp Pulse Resp B/P Pulse Ox O2 Delivery O2 Flow Rate FiO2 09/08/16 05:51 16 09/08/16 01:20 16 09/08/16 00:50 16 09/08/16 00:30 99.1 112 20 144/76 99 09/07/16 21:15 Nasal Cannula 3.00 09/07/16 21:04 18 09/07/16 20:27 96 Nasal Cannula 3.00 09/07/16 20:20 99.5 111 19 148/73 99 09/07/16 16:45 100 Nasal Cannula 3.00 09/07/16 16:00 98.0 123 16 120/80 99 09/07/16 12:10 108 14 152/85 100 Nasal Cannula 2 09/07/16 12:00 109 14 158/87 100 Nasal Cannula 3 09/07/16 12:00 98.4 111 16 149/82 98 09/07/16 11:45 110 14 155/87 100 Nasal Cannula 3 09/07/16 11:30 112 14 147/87 100 Nasal Cannula 3 09/07/16 11:24 14 09/07/16 11:15 119 14 138/94 97 Nasal Cannula 3 09/07/16 11:00 98.4 128 14 137/99 98 Nasal Cannula 4 I/O 09/07/16 09/07/16 09/07/16 09/08/16 09/08/16 09/08/16 07:00 15:00 23:00 07:00 15:00 23:00 Intake Total 480 ml 1100 ml 933 ml Output Total 1100 ml 585 ml 918 ml Balance -620 ml 515 ml 15 ml Intake Oral 480 ml 240 ml IV Total 693 ml Other 1100 ml Output Urine Total 1100 ml 525 ml 900 ml Chest Tube Drainage Total 10 ml 18 ml Estimated Blood Loss 50 ml # Bowel Movements 0 0 Result Diagram: 09/08/16 0615 09/07/16 0643 Imaging Last 24 hours Impressions Thoracic Spine CT 09/05/16 0744 Signed Impressions: Service Date/Time: Monday, September 05, 2016 07:53 - CONCLUSION: Old compression deformity of L1. No evidence of acute bony injury. Subcutaneous emphysema within the right side along the back. Malik De La Garza MD Lumbar Spine CT 09/05/16743 Signed Impressions: Service Date/Time: Monday, September 05, 2016 07:53 - CONCLUSION: Old compression deformity of L1. No acute bony abnormality. Malik De La Garza MD Head CT 09/05/16743 Signed Impressions: Service Date/Time: Monday, September 05, 2016 07:47 - CONCLUSION: No evidence of acute intracranial trauma Intact skull Malik De La Garza MD Cervical Spine CT 09/05/16743 Signed Impressions: Service Date/Time: Monday, September 05, 2016 07:49 - CONCLUSION: Normal CT of the cervical spine. No evidence of significant soft tissue or bony trauma. Malik De La Garza MD Chest CT 09/05/16721 Signed Impressions: Service Date/Time: Monday, September 05, 2016 07:53 - CONCLUSION: 1. Soft tissue injury with a large laceration along the right lateral chest wall. Large foreign body is identified within the defect. 2. Minimal airspace disease left lung base. 3. No other significant soft tissue injury. 4. Intact osseous structures. Malik De La Garza MD Abdomen/Pelvis CT 09/05/16721 Signed Impressions: Service Date/Time: Monday, September 05, 2016 07:47 - CONCLUSION: 1. Hyperdense focus in the right hepatic lobe beneath the dome of the diaphragm most characteristic of a small hemangioma. Focal contrast extravasation cannot be completely excluded however there are no other surrounding traumatic changes. 2. Large soft tissue defect with associated subcutaneous cutaneous emphysema along the right lateral chest wall consistent with laceration and tissue injury. Small foreign bodies are seen. 3. Intertrochanteric fracture of the proximal left femur. 4. No other evidence of significant soft tissue or bony trauma Malik De La Garza MD Objective Remarks Left leg: External fixator in place. Pin sites clean. Dressings dry. dorsalis pedis pulse palpable. Diminished sensation left foot. No dorsiflexion or plantar flexion of foot or toes. Calf and thigh compartments are soft Right leg: Clean dry dressings in place, Calf and thigh compartments soft. Good capillary refill right foot. Assessment & Plan Assessment and Plan Left hip intertrochanteric fracture--postop day #1 status post IM nail Closed right tibia shaft fracture--postop day #1 status post IM nail Open left distal femur fracture--continue IV antibiotics, plan irrigation and debridement and ORIF today Open left tibia shaft fracture--- continue IV antibiotics--plan irrigation and debridement and intramedullary nail fixation today Type and cross and transfuse 2 units packed red cells--check H&H in a.m. Nothing by mouth Lovenox Sign consents Bill Esteves MD Sep 08, 2016 06:44
[2016-09-08] MEDS ORDERED: TRANEXAMIC ACID INJ 0 MG in SODIUM CHLORIDE 0.9% INJ 100 ML IV ONE (06:45)
[2016-09-08] MEDS ORDERED: GENTAMICIN SULFATE 80 MG/2 ML VIAL ONE (07:14)
[2016-09-08] MEDS ORDERED: TRANEXAMIC ACID INJ 885 MG in SODIUM CHLORIDE 0.9% INJ 100 ML IV SCH (07:30)
[2016-09-08] MEDS ORDERED: VANCOMYCIN HCL 1000 MG VIAL ONE (07:34)
[2016-09-08] MEDS ORDERED: TOBRAMYCIN SULFATE 1200 MG VIAL OTHER ONE (09:00)
[2016-09-08 10:09] LABS: REVIEW FLAG FINAL
[2016-09-08] MEDS ORDERED: BACITRACIN TOP OINT 15 GM TUBE ONE (10:28)
[2016-09-08] MEDS ORDERED: Post-op Orders (for Pharmacy) MISC XX ONE (10:30)
[2016-09-08] MEDS ORDERED: SODIUM CHLORIDE 0.9% FLUSH 5 ML FLUSH IVF PRN (10:30)
--- NOTE | 2016-09-08 10:33 | RADRPT ---
EXAM DATE/TIME: 09/08/2016 08:40 [facility] COMPARISON: No previous studies available for comparison. INDICATIONS : Open reduction internal fixation left tibia. MEDICAL HISTORY : None. SURGICAL HISTORY : None. ENCOUNTER: Initial ACUITY: 1 day PAIN SCORE: Non-responsive. LOCATION: Left Tibia/Fibula. FINDINGS: Intramedullary kelsey is present bridging the tibial fracture. Alignment anatomic. Fibular fractures a gain noted. CONCLUSION: Anatomic alignment with tibial kelsey. Aquilino Pereyra MD FACR on September 08, 2016 at 10:28 Board Certified Radiologist. This report was verified electronically.
--- NOTE | 2016-09-08 10:34 | PD.OP ---
cc: Bill Gaxiola MD Operative Report Date of Surgery: Sep 08, 2016 Preoperative Diagnosis: Open left tibial shaft fracture, open left distal femur intra-articular fracture Postoperative Diagnosis: Procedure: Removal of external fixation, Irrigation debridement left tibia shaft, intramedullary nail fixation left tibia shaft, irrigation and debridement of open left distal femur fracture, open reduction internal fixation comminuted intra-articular left distal femur fracture, and placement of antibiotic beads Anesthesia: Gen. Surgeon: Bill Gaxiola Lan Support Specialist(s): RUSS Smith PA-C The surgical procedure was assisted by my physician office clerk assistant. My P.A. presence was necessary throughout this case for the manipulation and positioning of the surgical extremity. My P.A. was assisting me throughout the duration of this procedure. The skill set of a physician office clerk assistant was medically necessary to complete this procedure. During the surgical case the surgical asst was working at the back table and the physician office clerk assistant was directly assisting me. Operation and Findings: Implants: synthes 9 mm x [360]mm tibial nail, Synthes lateral condylar plate Plan of activity: Nonweightbearing left leg, weight-bear as tolerated right leg for transfers Patient was seen and examined preoperatively. An informed consent was obtained from patient after detailed discussion of risk and benefits. Risks of surgery include bleeding, infection, painful hardware, nonunion, malunion, leg length discrepancy, need for hardware removal, and medical complications associated with anesthesia including blood clots, stroke, heart attack, and were discussed. Operative site was marked. Patient was brought to the operating room placed on or table. Patient received IV antibiotics and was given IV sedation GETA. Timeout procedure was performed At this point attention was turned towards removal of the external fixation. Clamps were loosened. Clamps and bars were removed from the pins. The pins were now removed with the drill. Operative leg was prepped with alcohol Hibiclens and draped in usual sterile fashion. Procedure began with irrigation and debridement of the tibia fracture. The traumatic lacerations were opened. Skin subcutaneous tissue and fascia were sharply debrided with scalpel. Curettes were used to debride the bone. Overall wound appeared to be very clean. 3 views of sterile saline and I used to thoroughly irrigate soft tissue and bone. Next attention was turned towards reduction of fracture. A percutaneous clamp was placed and Traction was applied. Fracture was reduced. There was comminution of the fracture. The fracture reduced and excellent alignment was achieved. Fracture clamp was used to aid in reduction. Next a 3 cm incision was made proximal to the patella. Quadriceps tendon was split in line with fibers. Cannulas were placed in the patellofemoral joint to protect the articular surface at all times. A guidepin was placed into the tibia and advanced in the tibial canal. Fluoroscopy was used to confirm appropriate guidepin placement. An opening reamer was used to open the tibial canal. A ball-tipped guidewire was advanced down the tibial canal. Guidepin was passed across the fracture site into the center of the distal tibia. Fluoroscopy confirmed guidepin placement. The nail length was now measured. The fracture was now held in a reduced position and the canal was reamed. The canal was reamed up to appropriate size. A Synthes nail was now selected. Next the nail was fully seated. Using perfect north fork technique 3 distal interlocking screws were placed. Using the insertion handle as a guide 2 proximal interlocking screws were placed. Fluoroscopy confirmed excellent of fracture with well- placed hardware. Incisions and the knee joint were thoroughly irrigated with sterile saline. Fascia was closed with #1 PDS, subcutaneous tissues closed with 3-0 PDS and skin was closed with maday. The traumatic lacerations were closed with 3-0 PDS and 3-0 nylon. Next attention was turned towards the distal femur. The traumatic laceration was opened. The previously made lateral incision was also opened. At this point the wound was thoroughly debrided. Skin subcutaneous tissue and fascia were debrided with scalpel and rongeurs. Bone was cleaned with curettes. There were several small bone fragments which were excised. Overall the wound appeared to be very clean. The wound was now thoroughly irrigated with sterile saline. Next attention was turned towards reduction and fixation of the distal femur. At this point the fracture was visualized. Traction was applied. Fracture was manipulated. There was a large fragment fractured from the lateral femoral condyle. This fragment was carefully reduced. Fracture keyed into anatomic alignment. K wires were used to hold provisional fixation. An additional 3.5 cortical lag screws placed to compress this fracture fragment. At this point the condyles were now reduced to the shaft. The metaphyseal region was severely comminuted. Traction was applied. The fracture reduced relatively well. Steinmann pins were used to hold provisional fixation. At this point attention was turned to plate placement. A lateral condylar plate was selected and attached to the insertion handle jig. The plate was placed underneath the vastus lateralis. Steinmann pins were used to hold the plate to bone. Multiplanar fluoroscopy confirmed appropriate placement of plate. Multiple 4.5 cortical screws were now placed in percutaneous fashion through the plate. The plate was compressed to bone. Multiple locking screws were now placed in the distal segment of the distal femur. Additional locking screws were placed into the femoral shaft. All screws were predrilled and premeasured for appropriate length. Final fluoroscopy revealed excellent alignment of fracture with well-placed hardware. Wound was thoroughly irrigated. Because of the open nature of the wound as well as a severely comminuted metaphyseal region, decision was made to place antibiotic beads. 10 cc of stimulant bone cement was mixed with 1 g of vancomycin and 1 g of tobramycin. Once the beads were set the beads were packed into the metaphyseal region of the fracture. Fascia was closed with #1 PDS. Subcutaneous tissue was closed with 3-0 PDS. Skin was closed with maday. Sterile dressings were applied. The patient was placed into a knee immobilizer and transferred to recovery in stable condition. Needle and sponge counts were correct. Bill Gaxiola MD Sep 08, 2016 10:34
[2016-09-08] MEDS ORDERED: DO NOT ADM ANY ANTICOAGULANT DRUGS PRN (10:59)
[2016-09-08] MEDS ORDERED: fentaNYL CITRATE 250 MCG/5 ML AMP ONE (11:05)
--- NOTE | 2016-09-08 11:09 | PD.ORT.PN ---
Subjective Subjective Remarks Awake and alert Objective Vitals Vital Signs Date Time Temp Pulse Resp B/P Pulse Ox O2 Delivery O2 Flow Rate FiO2 09/08/16 05:51 16 09/08/16 04:20 99.3 114 19 141/75 100 09/08/16 01:20 16 09/08/16 00:50 16 09/08/16 00:30 99.1 112 20 144/76 99 09/07/16 21:15 Nasal Cannula 3.00 09/07/16 21:04 18 09/07/16 20:27 96 Nasal Cannula 3.00 09/07/16 20:20 99.5 111 19 148/73 99 09/07/16 16:45 100 Nasal Cannula 3.00 09/07/16 16:00 98.0 123 16 120/80 99 09/07/16 12:10 108 14 152/85 100 Nasal Cannula 2 09/07/16 12:00 109 14 158/87 100 Nasal Cannula 3 09/07/16 12:00 98.4 111 16 149/82 98 09/07/16 11:45 110 14 155/87 100 Nasal Cannula 3 09/07/16 11:30 112 14 147/87 100 Nasal Cannula 3 09/07/16 11:24 14 09/07/16 11:15 119 14 138/94 97 Nasal Cannula 3 I/O 09/07/16 09/07/16 09/07/16 09/08/16 09/08/16 09/08/16 07:00 15:00 23:00 07:00 15:00 23:00 Intake Total 480 ml 1100 ml 933 ml 947 ml Output Total 1100 ml 585 ml 918 ml 1120 ml Balance -620 ml 515 ml 15 ml -173 ml Intake Oral 480 ml 240 ml 0 ml IV Total 693 ml 947 ml Other 1100 ml Output Urine Total 1100 ml 525 ml 900 ml 1100 ml Chest Tube Drainage Total 10 ml 18 ml 20 ml Estimated Blood Loss 50 ml # Bowel Movements 0 0 0 Result Diagram: 09/08/16 0948 09/07/16 0643 Imaging Last 24 hours Impressions Thoracic Spine CT 09/05/16 0744 Signed Impressions: Service Date/Time: Monday, September 05, 2016 07:53 - CONCLUSION: Old compression deformity of L1. No evidence of acute bony injury. Subcutaneous emphysema within the right side along the back. Malik De La Garza MD Lumbar Spine CT 09/05/16743 Signed Impressions: Service Date/Time: Monday, September 05, 2016 07:53 - CONCLUSION: Old compression deformity of L1. No acute bony abnormality. Malik De La Garza MD Head CT 09/05/16743 Signed Impressions: Service Date/Time: Monday, September 05, 2016 07:47 - CONCLUSION: No evidence of acute intracranial trauma Intact skull Malik De La Garza MD Cervical Spine CT 09/05/16743 Signed Impressions: Service Date/Time: Monday, September 05, 2016 07:49 - CONCLUSION: Normal CT of the cervical spine. No evidence of significant soft tissue or bony trauma. Malik De La Garza MD Chest CT 09/05/16721 Signed Impressions: Service Date/Time: Monday, September 05, 2016 07:53 - CONCLUSION: 1. Soft tissue injury with a large laceration along the right lateral chest wall. Large foreign body is identified within the defect. 2. Minimal airspace disease left lung base. 3. No other significant soft tissue injury. 4. Intact osseous structures. Malik De La Garza MD Abdomen/Pelvis CT 09/05/16721 Signed Impressions: Service Date/Time: Monday, September 05, 2016 07:47 - CONCLUSION: 1. Hyperdense focus in the right hepatic lobe beneath the dome of the diaphragm most characteristic of a small hemangioma. Focal contrast extravasation cannot be completely excluded however there are no other surrounding traumatic changes. 2. Large soft tissue defect with associated subcutaneous cutaneous emphysema along the right lateral chest wall consistent with laceration and tissue injury. Small foreign bodies are seen. 3. Intertrochanteric fracture of the proximal left femur. 4. No other evidence of significant soft tissue or bony trauma Malik De La Garza MD Objective Remarks Left leg: Clean dry dressings intact. Knee immobilizer in place. Distally good capillary refills in distal pulses. Right leg: Clean dry dressings in place, Calf and thigh compartments soft. Good capillary refill right foot. Assessment & Plan Assessment and Plan Left hip intertrochanteric fracture--postop day #1 status post IM nail Closed right tibia shaft fracture--postop day #1 status post IM nail Open left distal femur fracture--postop day #0 status post ORIF Open left tibia shaft fracture--- postop day #0 status post IM nail Given 2 units of packed red blood cells operatively H&H in the morning Physical therapy: right lower extremity weightbearing as tolerated for transfers only Left lower extremity: Nonweightbearing, knee immobilizer in place with no active leglifts or quad sets. Passive range of motion of knee from 0-90 Lovenox Discharge planning Orthopedic surgeries are completed this point Incentive spirometry Thien Mae Jr. Sep 08, 2016 11:09
--- NOTE | 2016-09-08 11:40 | RADRPT ---
EXAM DATE/TIME: 09/08/2016 08:40 [facility] COMPARISON: No previous studies available for comparison. INDICATIONS : Open reduction internal fixation left distal femur. MEDICAL HISTORY : None. SURGICAL HISTORY : None. ENCOUNTER: Initial ACUITY: 1 day PAIN SCORE: Non-responsive. LOCATION: Left Femur. FINDINGS: Extensive hardware is noted within the left distal femur status post ORIF of comminuted fracture. [place] rdware appears to be in good position. Hardware is also noted within the proximal femur as well as t he tibia. CONCLUSION: 1. ORIF of left distal femur comminuted fracture which appears to be successfully reduced and aligne d. Segundo Hermosillo MD on September 08, 2016 at 11:34 Board Certified Radiologist. This report was verified electronically.
[2016-09-08] MEDS ORDERED: LACTATED RINGER'S 1000 ML INJ 1,000 ML IV ONE (12:00)
[2016-09-08] MEDS ORDERED: ONDANSETRON HCL 4 MG/2 ML VIAL IV PUSH ONE (12:00)
[2016-09-08] MEDS ORDERED: PROPOFOL 200 MG/20 ML AMP IV ONE (12:00)
[2016-09-08] MEDS ORDERED: NEOSTIGMINE 3 MG/3 ML SYR IV ONE (12:00)
[2016-09-08] MEDS ORDERED: KETOROLAC TROMETHAMINE 60 MG/2 ML (IM) VIAL IM ONE (12:00)
[2016-09-08] MEDS: LACTATED RINGER'S 1000 ML INJ 1,000 ML IV SCH ×2 (12:00→23:25)
--- NOTE | 2016-09-08 13:33 | OTSOAPIP ---
TIME SESSION COMPLETED: AM/PM TREATMENT TIME: 0 MINS. CHART REVIEWED. ATTEMPTED TO SEE PATIENT FOR EVALUATION X 2 ATTEMPTS, HOWEVER PATIENT WAS OFF FLOOR FOR SURGERY. WILL PLAN TO REATTEMPT NEXT TREATMENT DAY. Therapist: GRZEGORZ WALL, OTR/L Signature on file
--- NOTE | 2016-09-08 14:01 | HHI.PR ---
Subjective Subjective Notes S/P I&D LEFT femur ORIF, LEFT tibia nail fixation I&D and IM fixation Complains of bilateral leg pain Objective Vitals/I&O Vital Signs Date Time Temp Pulse Resp B/P Pulse Ox O2 Delivery O2 Flow Rate FiO2 09/08/16 11:45 98 14 147/88 96 Room Air 09/08/16 11:15 1 09/08/16 10:57 98.3 09/06/16 12:25 40 Labs Laboratory Tests Test 09/08/16 09/08/16 09/08/16 06:15 07:20 09:48 Hemoglobin 6.6 8.3 Hematocrit 19.6 24.0 Blood Type O POSITIVE Antibody Screen NEGATIVE Crossmatch Leukocyte-Reduced Red Blood Cells Blood Bank Comment Radiology Last Impressions Chest X-Ray 09/07/16 0600 Signed Impressions: Service Date/Time: August 05:12 - CONCLUSION: Mild left lung base atelectasis and/or infiltrate is seen. Kalyan Horan MD Lower Extremity CT 09/05/16 1119 Signed Impressions: Service Date/Time: Tuesday, September 06, 2016 16:24 - CONCLUSION: Severe acute comminuted displaced fracture involving the left distal femur. Segundo Hermosillo MD Thoracic Spine CT 09/05/1644 Signed Impressions: Service Date/Time: Monday, September 05, 2016 07:53 - CONCLUSION: Old compression deformity of L1. No evidence of acute bony injury. Subcutaneous emphysema within the right side along the back. Malik De La Garza MD Lumbar Spine CT 09/05/1644 Signed Impressions: Service Date/Time: Monday, September 05, 2016 07:53 - CONCLUSION: Old compression deformity of L1. No acute bony abnormality. Malik De La Garza MD Head CT 09/05/1644 Signed Impressions: Service Date/Time: Monday, September 05, 2016 07:47 - CONCLUSION: No evidence of acute intracranial trauma Intact skull Malik De La Garza MD Cervical Spine CT 09/05/1644 Signed Impressions: Service Date/Time: Monday, September 05, 2016 07:49 - CONCLUSION: Normal CT of the cervical spine. No evidence of significant soft tissue or bony trauma. Malik De La Garza MD Chest CT 09/05/16721 Signed Impressions: Service Date/Time: Monday, September 05, 2016 07:53 - CONCLUSION: 1. Soft tissue injury with a large laceration along the right lateral chest wall. Large foreign body is identified within the defect. 2. Minimal airspace disease left lung base. 3. No other significant soft tissue injury. 4. Intact osseous structures. aMlik De La Garza MD Abdomen/Pelvis CT 09/05/16721 Signed Impressions: Service Date/Time: Monday, September 05, 2016 07:47 - CONCLUSION: 1. Hyperdense focus in the right hepatic lobe beneath the dome of the diaphragm most characteristic of a small hemangioma. Focal contrast extravasation cannot be completely excluded however there are no other surrounding traumatic changes. 2. Large soft tissue defect with associated subcutaneous cutaneous emphysema along the right lateral chest wall consistent with laceration and tissue injury. Small foreign bodies are seen. 3. Intertrochanteric fracture of the proximal left femur. 4. No other evidence of significant soft tissue or bony trauma Malik De La Garza MD Tibia/Fibula X-Ray 09/05/16 Signed Impressions: Service Date/Time: Monday, September 05, 2016 11:10 - CONCLUSION: 1... Comminuted fracture involving the left mid tibia. Segundo Hermosillo MD Pelvis X-Ray 09/05/16 Signed Impressions: Service Date/Time: Monday, September 05, 2016 07:15 - CONCLUSION: Intertrochanteric fracture of the left proximal femur. Visualized portions of pelvis appears intact. Malik De La Garza MD Knee X-Ray 09/05/16 Signed Impressions: Service Date/Time: Monday, September 05, 2016 11:10 - CONCLUSION: Comminuted fracture involving the left distal femur. Segundo Hermosillo MD Hand X-Ray 09/05/16 Signed Impressions: Service Date/Time: Monday, September 05, 2016 07:15 - CONCLUSION: Soft tissue swelling without evidence of fracture or dislocation. Malik De La Garza MD Femur X-Ray 09/05/16 Signed Impressions: Service Date/Time: Monday, September 05, 2016 07:15 - CONCLUSION: Intertrochanteric fracture of the proximal left femur. Shattered distal left femur with extensive comminuted fracture of. Knee joint remain satisfactory alignment. Malik De La Garza MD Narrative Exam GENERAL: 38 year old well-nourished, well developed male lying in bed. SKIN: Warm and dry. Multiple facial abrasions noted. HEAD: Normocephalic. ENT: No nasal bleeding or discharge. Mucous membranes pink and moist. NECK: Trachea midline. No JVD. CARDIOVASCULAR: Regular rate and rhythm. RESPIRATORY: Lungs clear to auscultation. Breath sounds equal bilaterally. RIGHT lateral CT to water seal. No air leak noted. GASTROINTESTINAL: Abdomen soft, non-tender, nondistended. + BS. MUSCULOSKELETAL: Extremities without cyanosis, +1 generalized edema. RLE BARRIE wrap. + pulses x4. NEUROLOGICAL: Sedated, arousable to voice. A/P Assessment and Plan INJURIES: Forehead laceration Chin laceration Penetrating chest trauma Closed LEFT hip intertrochanteric fracture Open LEFT distal femur fracture Open LEFT tibia fracture Closed RIGHT tibia fracture 09/05: RIGHT thoracotomy. Repair of chin and forehead laceration; I&D LEFT distal femur fx w/ IM nail; I&D, Closed reduction w/ ex-fix LEFT tibia. 09/06: Extubated. 09/07: Reduction and IM nail fixation left hip intertrochanteric fx, reduction and IM nail fixation right tibia 09/08: I&D LEFT femur ORIF, LEFT tibia nail fixation I&D and IM fixation Diet: Regular, poor appetite Pulmonary: IS, encouraged use Pain: Dilaudid LAMINATION SPINNER Activity: OOB. PT and OT ordered GI: Pepcid Bowel: Rosette-colace. Added Lactulose QD. LBM: 0 DVT: SCDs, Lovenox 40 QD Penetrating chest trauma 09/05: RIGHT thoracotomy Chest tube to water seal CXR in AM- evaluate for CT removal Closed LEFT hip intertrochanteric fx, Open LEFT distal femur fx,Open LEFT tibia fx, Closed RIGHT tibia fx Orthopedics consulted 09/05: RIGHT thoracotomy. Repair of chin and forehead laceration; I&D LEFT distal femur fx w/ IM nail; I&D, Closed reduction w/ ex-fix LEFT tibia 09/07: Reduction and IM nail fixation left hip intertrochanteric fx, reduction and IM nail fixation right tibia 09/08: I&D LEFT femur ORIF, LEFT tibia nail fixation I&D and IM fixation IV antibiotics: Ancef. Gentamicin. Zosyn. Pain control PT - OOB NWB LLE, WBAT for transfers RLE Plan of care discussed with RN at bedside. Case management consulted to assist with discharge planning. Campbell Yoo Sep 08, 2016 14:01
[2016-09-08] MEDS: LACTULOSE SYRUP 20 GM/30 ML CUP PO SCH (14:10)
[2016-09-08] MEDS: CHOLECALCIFEROL (VIT D3) 1000 UNIT TAB PO SCH (14:11)
[2016-09-08] MEDS: ERGOCALCIFEROL (VIT D2) 50,000 UNIT CAP PO SCH (14:11)
[2016-09-08] MEDS: FOLIC ACID 1 MG TAB PO SCH (14:11)
[2016-09-08] MEDS: THIAMINE HCL 100 MG TAB PO SCH (14:11)
[2016-09-08] MEDS: FAMOTIDINE 20 MG TAB PO SCH ×2 (14:11→20:33)
[2016-09-08] MEDS: DOCUSATE SODIUM 50 MG/SENNA 8.6 MG TAB PO SCH ×2 (14:11→20:33)
[2016-09-08] MEDS: KETOROLAC TROMETHAMINE 30 MG/ML (IVP) VIAL IVP SCH ×2 (14:12→20:33)
[2016-09-08] MEDS: POLYETHYLENE GLYCOL 17 GM PKG PO SCH (17:32)
[2016-09-08] MEDS: SODIUM CHLORIDE 0.9% FLUSH 5 ML FLUSH IVF SCH (20:33)
[2016-09-09 04:10] VITALS: BP 133/63; PULSE 119; RESP 19; TEMP 99.5; O2SAT 93
[2016-09-09] MEDS: PCA - TOTAL MG DILAUDID DELIVERED PER SHIFT OTHER SCH ×3 (05:02→20:56)
[2016-09-09] MEDS: KETOROLAC TROMETHAMINE 30 MG/ML (IVP) VIAL IVP SCH (05:02)
[2016-09-09] MEDS: ceFAZolin 2 GM PREMIX 50 ML IV SCH ×3 (05:02→20:55)
[2016-09-09 05:27] LABS: HEMATOCRIT 21.7 % (39.0-51.0); REVIEW FLAG FINAL
[2016-09-09] MEDS: HYDROmorphone HCL PCA 6 MG/30 ML IV SCH ×2 (07:22→18:19)
[2016-09-09 08:00] VITALS: BP 124/62; PULSE 96; RESP 18; TEMP 98; O2SAT 92
[2016-09-09] MEDS: SODIUM CHLORIDE 0.9% FLUSH 5 ML FLUSH IVF SCH ×2 (09:00→20:55)
[2016-09-09 09:54] VITALS: O2SAT 96
[2016-09-09] MEDS: FAMOTIDINE 20 MG TAB PO SCH ×2 (10:34→20:55)
[2016-09-09] MEDS: CHOLECALCIFEROL (VIT D3) 1000 UNIT TAB PO SCH (10:34)
[2016-09-09] MEDS: POLYETHYLENE GLYCOL 17 GM PKG PO SCH (10:34)
[2016-09-09] MEDS: THIAMINE HCL 100 MG TAB PO SCH (10:34)
[2016-09-09] MEDS: FOLIC ACID 1 MG TAB PO SCH (10:34)
[2016-09-09] MEDS: LACTULOSE SYRUP 20 GM/30 ML CUP PO SCH (10:34)
[2016-09-09] MEDS: DOCUSATE SODIUM 50 MG/SENNA 8.6 MG TAB PO SCH ×2 (10:34→20:55)
[2016-09-09] MEDS: GENTAMICIN 80 MG PREMIX 100 ML IV SCH ×2 (10:36→16:37)
[2016-09-09] MEDS: ENOXAPARIN SODIUM 30 MG/0.3 ML SYRINGE SQ SCH ×2 (10:43→20:55)
[2016-09-09 12:00] VITALS: BP 137/79; PULSE 104; RESP 18; TEMP 96.8; O2SAT 98
--- NOTE | 2016-09-09 12:34 | PD.ORT.PN ---
Subjective Subjective Remarks doing well. no c/o. Objective Vitals Vital Signs Date Time Temp Pulse Resp B/P Pulse Ox O2 Delivery O2 Flow Rate FiO2 09/09/16 09:54 96 Nasal Cannula 4.00 09/09/16 08:00 98.0 96 18 124/62 92 09/09/16 04:10 99.5 119 19 133/63 93 09/08/16 23:20 98.0 110 19 125/62 94 09/08/16 20:20 100.0 122 19 137/65 93 09/08/16 17:33 96 Nasal Cannula 1.00 09/08/16 16:00 97.0 112 16 116/57 93 09/08/16 14:08 14 09/08/16 14:00 14 I/O 09/08/16 09/08/16 09/08/16 09/09/16 09/09/16 09/09/16 07:00 15:00 23:00 07:00 15:00 23:00 Intake Total 947 ml 240 ml 823 ml 563 ml Output Total 1120 ml 658 ml 450 ml 697 ml Balance -173 ml -418 ml 373 ml -134 ml Intake Oral 0 ml 240 ml 480 ml 240 ml IV Total 947 ml 0 ml 343 ml 323 ml Output Urine Total 1100 ml 650 ml 450 ml 675 ml Chest Tube Drainage Total 20 ml 8 ml 0 ml 22 ml # Bowel Movements 0 0 0 0 Result Diagram: 09/09/1612 09/07/16 0643 Imaging Last 24 hours Impressions Thoracic Spine CT 09/05/16743 Signed Impressions: Service Date/Time: Monday, September 05, 2016 07:53 - CONCLUSION: Old compression deformity of L1. No evidence of acute bony injury. Subcutaneous emphysema within the right side along the back. Malik De La Garza MD Lumbar Spine CT 09/05/16743 Signed Impressions: Service Date/Time: Monday, September 05, 2016 07:53 - CONCLUSION: Old compression deformity of L1. No acute bony abnormality. Malik De La Garza MD Head CT 09/05/16743 Signed Impressions: Service Date/Time: Monday, September 05, 2016 07:47 - CONCLUSION: No evidence of acute intracranial trauma Intact skull Malik De La Garza MD Cervical Spine CT 09/05/16743 Signed Impressions: Service Date/Time: Monday, September 05, 2016 07:49 - CONCLUSION: Normal CT of the cervical spine. No evidence of significant soft tissue or bony trauma. Malik De La Garza MD Chest CT 09/05/16721 Signed Impressions: Service Date/Time: Monday, September 05, 2016 07:53 - CONCLUSION: 1. Soft tissue injury with a large laceration along the right lateral chest wall. Large foreign body is identified within the defect. 2. Minimal airspace disease left lung base. 3. No other significant soft tissue injury. 4. Intact osseous structures. Malik De La Garza MD Abdomen/Pelvis CT 09/05/16721 Signed Impressions: Service Date/Time: Monday, September 05, 2016 07:47 - CONCLUSION: 1. Hyperdense focus in the right hepatic lobe beneath the dome of the diaphragm most characteristic of a small hemangioma. Focal contrast extravasation cannot be completely excluded however there are no other surrounding traumatic changes. 2. Large soft tissue defect with associated subcutaneous cutaneous emphysema along the right lateral chest wall consistent with laceration and tissue injury. Small foreign bodies are seen. 3. Intertrochanteric fracture of the proximal left femur. 4. No other evidence of significant soft tissue or bony trauma Malik De La Garza MD Objective Remarks Left leg: Clean dry dressings intact. Knee immobilizer in place. Distally good capillary refills in distal pulses. Right leg: Clean dry dressings in place, Calf and thigh compartments soft. Good capillary refill right foot. Assessment & Plan Assessment and Plan Left hip intertrochanteric fracture--postop day #2 status post IM nail Closed right tibia shaft fracture--postop day #2 status post IM nail Open left distal femur fracture--postop day #1 status post ORIF Open left tibia shaft fracture--- postop day #1 status post IM nail Hb 7.6 s/p PRBC Physical therapy: right lower extremity weightbearing as tolerated for transfers only Left lower extremity: Nonweightbearing, knee immobilizer in place with no active leglifts or quad sets. Passive range of motion of knee from 0-90 Lovenox Discharge planning Orthopedic surgeries are completed this point Incentive spirometry Sergei Landrum Jr., MD Sep 09, 2016 12:34
[2016-09-09] MEDS: LACTATED RINGER'S 1000 ML INJ 1,000 ML IV SCH (13:00)
--- NOTE | 2016-09-09 14:08 | HHI.PR ---
Subjective Subjective Notes OOB in chair No complaints Received 2 PRBCs yesterday for Hgb 6.6 Objective Vitals/I&O Vital Signs Date Time Temp Pulse Resp B/P Pulse Ox O2 Delivery O2 Flow Rate FiO2 09/09/16 13:52 18 09/09/16 12:00 96.8 104 137/79 98 09/09/16 10:40 Nasal Cannula 4.00 09/06/16 12:25 40 Labs Laboratory Tests Test 09/09/16 05:12 Hemoglobin 7.6 Hematocrit 21.7 Radiology Last Impressions Chest X-Ray 09/07/16 0600 Signed Impressions: Service Date/Time: August 05:12 - CONCLUSION: Mild left lung base atelectasis and/or infiltrate is seen. Kalyan Horan MD Lower Extremity CT 09/05/16 1119 Signed Impressions: Service Date/Time: Tuesday, September 06, 2016 16:24 - CONCLUSION: Severe acute comminuted displaced fracture involving the left distal femur. Segundo Hermosillo MD Thoracic Spine CT 09/05/1644 Signed Impressions: Service Date/Time: Monday, September 05, 2016 07:53 - CONCLUSION: Old compression deformity of L1. No evidence of acute bony injury. Subcutaneous emphysema within the right side along the back. Malik De La Garza MD Lumbar Spine CT 09/05/1644 Signed Impressions: Service Date/Time: Monday, September 05, 2016 07:53 - CONCLUSION: Old compression deformity of L1. No acute bony abnormality. Malik De La Garza MD Head CT 09/05/1644 Signed Impressions: Service Date/Time: Monday, September 05, 2016 07:47 - CONCLUSION: No evidence of acute intracranial trauma Intact skull Malik De La Garza MD Cervical Spine CT 09/05/1644 Signed Impressions: Service Date/Time: Monday, September 05, 2016 07:49 - CONCLUSION: Normal CT of the cervical spine. No evidence of significant soft tissue or bony trauma. Malik De La Garza MD Chest CT 09/05/1622 Signed Impressions: Service Date/Time: Monday, September 05, 2016 07:53 - CONCLUSION: 1. Soft tissue injury with a large laceration along the right lateral chest wall. Large foreign body is identified within the defect. 2. Minimal airspace disease left lung base. 3. No other significant soft tissue injury. 4. Intact osseous structures. Malik De La Garza MD Abdomen/Pelvis CT 09/05/16 0722 Signed Impressions: Service Date/Time: Monday, September 05, 2016 07:47 - CONCLUSION: 1. Hyperdense focus in the right hepatic lobe beneath the dome of the diaphragm most characteristic of a small hemangioma. Focal contrast extravasation cannot be completely excluded however there are no other surrounding traumatic changes. 2. Large soft tissue defect with associated subcutaneous cutaneous emphysema along the right lateral chest wall consistent with laceration and tissue injury. Small foreign bodies are seen. 3. Intertrochanteric fracture of the proximal left femur. 4. No other evidence of significant soft tissue or bony trauma Malik De La Garza MD Tibia/Fibula X-Ray 09/05/16 0000 Signed Impressions: Service Date/Time: Monday, September 05, 2016 11:10 - CONCLUSION: 1... Comminuted fracture involving the left mid tibia. Segundo Hermosillo MD Pelvis X-Ray 09/05/16 0000 Signed Impressions: Service Date/Time: Monday, September 05, 2016 07:15 - CONCLUSION: Intertrochanteric fracture of the left proximal femur. Visualized portions of pelvis appears intact. Malik De La Garza MD Knee X-Ray 09/05/16 0000 Signed Impressions: Service Date/Time: Monday, September 05, 2016 11:10 - CONCLUSION: Comminuted fracture involving the left distal femur. Segundo Hermosillo MD Hand X-Ray 09/05/16 0000 Signed Impressions: Service Date/Time: Monday, September 05, 2016 07:15 - CONCLUSION: Soft tissue swelling without evidence of fracture or dislocation. Malik De La Garza MD Femur X-Ray 09/05/16 0000 Signed Impressions: Service Date/Time: Monday, September 05, 2016 07:15 - CONCLUSION: Intertrochanteric fracture of the proximal left femur. Shattered distal left femur with extensive comminuted fracture of. Knee joint remain satisfactory alignment. Malik De La Garza MD Narrative Exam GENERAL: 38 year old well-nourished, well developed male OOB in chair. SKIN: Warm and dry. Multiple facial abrasions noted. HEAD: Normocephalic. ENT: No nasal bleeding or discharge. Mucous membranes pink and moist. NECK: Trachea midline. No JVD. CARDIOVASCULAR: Regular rate and rhythm. RESPIRATORY: Lungs clear to auscultation. Breath sounds equal bilaterally. RIGHT lateral CT to water seal. No air leak noted. GASTROINTESTINAL: Abdomen soft, non-tender, nondistended. + BS. MUSCULOSKELETAL: Extremities without cyanosis, +1 generalized edema. RLE BARRIE wrap. + pulses x4. NEUROLOGICAL: Awake and alert. Speech clear. A/P Assessment and Plan INJURIES: Forehead laceration Chin laceration Penetrating chest trauma Closed LEFT hip intertrochanteric fracture Open LEFT distal femur fracture Open LEFT tibia fracture Closed RIGHT tibia fracture 09/05: RIGHT thoracotomy. Repair of chin and forehead laceration; I&D LEFT distal femur fx w/ IM nail; I&D, Closed reduction w/ ex-fix LEFT tibia. 09/06: Extubated. 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 PT and OT ordered GI: Pepcid Bowel: Rosette-colace. Added Lactulose QD. LBM: 0 DVT: SCDs, Lovenox 40 QD Penetrating chest trauma 09/05: RIGHT thoracotomy Chest tube on water seal Plan to discontinue chest tube when drainage decreases CXR is negative for pneumothorax Closed LEFT hip intertrochanteric fx, Open LEFT distal femur fx,Open LEFT tibia fx, Closed RIGHT tibia fx Orthopedics consulted 09/05: RIGHT thoracotomy. Repair of chin and forehead laceration; I&D LEFT distal femur fx w/ IM nail; I&D, Closed reduction w/ ex-fix LEFT tibia 09/07: Reduction and IM nail fixation left hip intertrochanteric fx, reduction and IM nail fixation right tibia 09/08: I&D LEFT femur ORIF, LEFT tibia nail fixation I&D and IM fixation IV antibiotics: Ancef. Gentamicin. Zosyn. Pain control PT - OOB NWB LLE, WBAT for transfers RLE Hgb 7.6 today Plan of care discussed with patient at bedside. Case management consulted to assist with discharge planning. Campbell Yoo Sep 09, 2016 14:08
[2016-09-09 15:40] VITALS: BP 143/85; PULSE 93; RESP 18; TEMP 99.7; O2SAT 100
[2016-09-09 20:00] VITALS: BP 130/74; PULSE 111; RESP 16; RESP 18; TEMP 100.3; O2SAT 95
[2016-09-10] VITALS (7 sets, daily range): BP systolic 132–153; BP diastolic 82–91; PULSE 86–100; RESP 18–20; TEMP 96.6–100.3; O2SAT 92–99
[2016-09-10] MEDS: GENTAMICIN 80 MG PREMIX 100 ML IV SCH ×2 (00:06→08:40)
[2016-09-10] MEDS: LACTATED RINGER'S 1000 ML INJ 1,000 ML IV SCH (01:15)
[2016-09-10] MEDS: ACETAMINOPHEN/HYDROcodone 325 MG/10 MG TAB PO PRN ×2 (05:15→12:26)
[2016-09-10] MEDS: ceFAZolin 2 GM PREMIX 50 ML IV SCH (05:15)
[2016-09-10] MEDS: PCA - TOTAL MG DILAUDID DELIVERED PER SHIFT OTHER SCH (05:15)
[2016-09-10] MEDS: HYDROmorphone HCL PCA 6 MG/30 ML IV SCH (05:17)
[2016-09-10] MEDS: THIAMINE HCL 100 MG TAB PO SCH (08:39)
[2016-09-10] MEDS: POLYETHYLENE GLYCOL 17 GM PKG PO SCH (08:39)
[2016-09-10] MEDS: DOCUSATE SODIUM 50 MG/SENNA 8.6 MG TAB PO SCH ×2 (08:39→21:28)
[2016-09-10] MEDS: FOLIC ACID 1 MG TAB PO SCH (08:39)
[2016-09-10] MEDS: FAMOTIDINE 20 MG TAB PO SCH (08:39)
[2016-09-10] MEDS: CHOLECALCIFEROL (VIT D3) 1000 UNIT TAB PO SCH (08:39)
[2016-09-10] MEDS: LACTULOSE SYRUP 20 GM/30 ML CUP PO SCH (08:39)
[2016-09-10] MEDS: SODIUM CHLORIDE 0.9% FLUSH 5 ML FLUSH IVF SCH ×2 (08:40→21:28)
[2016-09-10] MEDS: ENOXAPARIN SODIUM 30 MG/0.3 ML SYRINGE SQ SCH ×2 (08:40→21:24)
--- NOTE | 2016-09-10 08:54 | RADRPT ---
EXAM DATE/TIME: 09/10/2016 08:19 [facility] COMPARISON: CHEST SINGLE AP, September 08, 2016, 5:49. INDICATIONS : Short of breath. Hemothorax. MEDICAL HISTORY : None. SURGICAL HISTORY : None. ENCOUNTER: Subsequent ACUITY: 4 - 6 days PAIN SCORE: 4/10 LOCATION: Bilateral chest FINDINGS: A single view of the chest demonstrates right central line in superior vena cava. Right chest tube wi th tiny residual right pneumothorax. Minimal basilar airspace disease. No significant effusion. Heart size mildly enlarged. CONCLUSION: 1. Right chest tube with tiny right pneumothorax. Right central line in superior vena cava. Minimal b asilar airspace disease. Noel Clarke MD on September 10, 2016 at 8:50 Board Certified Radiologist. This report was verified electronically.
[2016-09-10] MEDS ORDERED: ONDANSETRON HCL 4 MG/2 ML VIAL IV PUSH PRN (09:15)
[2016-09-10] MEDS ORDERED: BISACODYL 10 MG SUPP RECTAL ONE (09:45)
[2016-09-10 10:16] LABS: AUTOMATED NEUTROPHIL # 12.8 TH/MM3 (1.8-7.7); BASOPHIL % 0.3 % (0.0-2.0); EOSINOPHIL # 0.1 TH/MM3 (0-0.4); EOSINOPHIL % 0.8 % (0.0-4.0); LYMPH % 7.1 % (9.0-44.0); LYMPHOCYTE # 1.1 TH/MM3 (1.0-4.8); MEAN CELL VOLUME 86.1 FL (80.0-100.0); MEAN CORPUSCULAR HEMOGLOBIN 29.2 PG (27.0-34.0); MEAN CORPUSCULAR HGB CONC 33.9 % (32.0-36.0); MONO % 9.2 % (0.0-8.0); NEUT % 82.6 % (16.0-70.0); PLATELET COUNT 271 TH/MM3 (150-450); RED BLOOD COUNT 2.66 MIL/MM3 (4.50-5.90); RED CELL DISTRIBUTION WIDTH 14.9 % (11.6-17.2); WHITE BLOOD COUNT 15.5 TH/MM3 (4.0-11.0)
[2016-09-10 10:17] LABS: HEMATOCRIT 23.2 % (39.0-51.0); HEMO FLAGS AUTO DIFF
[2016-09-10 11:12] LABS: BANDS 17 % (0-6); BASOPHILS 1 % (0-2); CORRECTED NUCLEATED RBC 3 /100 WBC (0-0); METAMYELOCYTES 3 % (0-1); MYELOCYTES 1 % (0-0); NEUTROPHIL # MANUAL DIFF 13.6 TH/MM3 (1.8-7.7); POLYS (SEG NEUTROPHILS) 67 % (16-70); SCAN/DIFF FINAL DIFF MANUAL; WBC DIFF SAMPLE 100
[2016-09-10] MEDS ORDERED: PROMETHAZINE HCL 25 MG SUPP RECTAL ONE (12:00)
[2016-09-10] MEDS ORDERED: SODIUM CHLOR 0.9% 1000 ML INJ 1,000 ML IV SCH ×2 (13:00)
--- NOTE | 2016-09-10 14:16 | HHI.PR ---
Subjective Subjective Notes RN reports multiple episodes of vomiting today Patient c/o abdominal pain Abdomen tense and painful with palpation Objective Vitals/I&O Vital Signs Date Time Temp Pulse Resp B/P Pulse Ox O2 Delivery O2 Flow Rate FiO2 09/10/16 09:53 96 Nasal Cannula 2.00 09/10/16 08:00 97.9 86 18 139/91 09/06/16 12:25 40 Labs Laboratory Tests Test 09/10/16 09:28 White Blood Count 15.5 Red Blood Count 2.66 Hemoglobin 7.8 Hematocrit 23.2 Mean Corpuscular Volume 86.1 Mean Corpuscular Hemoglobin 29.2 Mean Corpuscular Hemoglobin 33.9 Concent Red Cell Distribution Width 14.9 Platelet Count 271 Mean Platelet Volume 8.1 Neutrophils (%) (Auto) 82.6 Lymphocytes (%) (Auto) 7.1 Monocytes (%) (Auto) 9.2 Eosinophils (%) (Auto) 0.8 Basophils (%) (Auto) 0.3 Neutrophils # (Auto) 12.8 Lymphocytes # (Auto) 1.1 Monocytes # (Auto) 1.4 Eosinophils # (Auto) 0.1 Basophils # (Auto) 0.0 CBC Comment AUTO DIFF Differential Total Cells 100 Counted Neutrophils % (Manual) 67 Band Neutrophils % 17 Lymphocytes % 3 Monocytes % 8 Basophils % 1 Neutrophils # (Manual) 13.6 Metamyelocytes 3 Myelocytes 1 Nucleated Red Blood Cells 3 Differential Comment FINAL DIFF MANUAL Radiology Last Impressions Chest X-Ray 09/07/16 0600 Signed Impressions: Service Date/Time: August 05:12 - CONCLUSION: Mild left lung base atelectasis and/or infiltrate is seen. Kalyan Horan MD Lower Extremity CT 09/05/16 1119 Signed Impressions: Service Date/Time: Tuesday, September 06, 2016 16:24 - CONCLUSION: Severe acute comminuted displaced fracture involving the left distal femur. Segundo Hermosillo MD Thoracic Spine CT 09/05/16 2544 Signed Impressions: Service Date/Time: Monday, September 05, 2016 07:53 - CONCLUSION: Old compression deformity of L1. No evidence of acute bony injury. Subcutaneous emphysema within the right side along the back. Malik De La Garza MD Lumbar Spine CT 09/05/16 4244 Signed Impressions: Service Date/Time: Monday, September 05, 2016 07:53 - CONCLUSION: Old compression deformity of L1. No acute bony abnormality. Malik De La Garza MD Head CT 09/05/1644 Signed Impressions: Service Date/Time: Monday, September 05, 2016 07:47 - CONCLUSION: No evidence of acute intracranial trauma Intact skull Malik De La Garza MD Cervical Spine CT 09/05/16743 Signed Impressions: Service Date/Time: Monday, September 05, 2016 07:49 - CONCLUSION: Normal CT of the cervical spine. No evidence of significant soft tissue or bony trauma. Malik De La Garza MD Chest CT 09/05/16721 Signed Impressions: Service Date/Time: Monday, September 05, 2016 07:53 - CONCLUSION: 1. Soft tissue injury with a large laceration along the right lateral chest wall. Large foreign body is identified within the defect. 2. Minimal airspace disease left lung base. 3. No other significant soft tissue injury. 4. Intact osseous structures. Malik De La Garza MD Abdomen/Pelvis CT 09/05/16721 Signed Impressions: Service Date/Time: Monday, September 05, 2016 07:47 - CONCLUSION: 1. Hyperdense focus in the right hepatic lobe beneath the dome of the diaphragm most characteristic of a small hemangioma. Focal contrast extravasation cannot be completely excluded however there are no other surrounding traumatic changes. 2. Large soft tissue defect with associated subcutaneous cutaneous emphysema along the right lateral chest wall consistent with laceration and tissue injury. Small foreign bodies are seen. 3. Intertrochanteric fracture of the proximal left femur. 4. No other evidence of significant soft tissue or bony trauma Malik De La Garza MD Tibia/Fibula X-Ray 09/05/16 Signed Impressions: Service Date/Time: Monday, September 05, 2016 11:10 - CONCLUSION: 1... Comminuted fracture involving the left mid tibia. Segundo Hermosillo MD Pelvis X-Ray 09/05/16 Signed Impressions: Service Date/Time: Monday, September 05, 2016 07:15 - CONCLUSION: Intertrochanteric fracture of the left proximal femur. Visualized portions of pelvis appears intact. Malik De La Garza MD Knee X-Ray 6/13/17 0000 Signed Impressions: Service Date/Time: Monday, September 05, 2016 11:10 - CONCLUSION: Comminuted fracture involving the left distal femur. Segundo Hermosillo MD Hand X-Ray 09/05/16 0000 Signed Impressions: Service Date/Time: Monday, September 05, 2016 07:15 - CONCLUSION: Soft tissue swelling without evidence of fracture or dislocation. Malik De La Garza MD Femur X-Ray 09/05/16 0000 Signed Impressions: Service Date/Time: Monday, September 05, 2016 07:15 - CONCLUSION: Intertrochanteric fracture of the proximal left femur. Shattered distal left femur with extensive comminuted fracture of. Knee joint remain satisfactory alignment. Malik De La Garza MD Narrative Exam GENERAL: 38 year old well-nourished, well developed male lying in bed. SKIN: Warm and dry. Multiple facial abrasions noted. HEAD: Normocephalic. ENT: No nasal bleeding or discharge. Mucous membranes pink and moist. NECK: Trachea midline. No JVD. CARDIOVASCULAR: Regular rate and rhythm. RESPIRATORY: Lungs clear to auscultation. Breath sounds equal bilaterally. RIGHT lateral CT to water seal. No air leak noted. GASTROINTESTINAL: Abdomen tense, slightly distended and painful with palpation x4 quads. MUSCULOSKELETAL: Extremities without cyanosis, +1 generalized edema. RLE BARRIE wrap. + pulses x4. NEUROLOGICAL: Awake and alert. Speech clear. A/P Assessment and Plan INJURIES: Forehead laceration Chin laceration Penetrating chest trauma Closed LEFT hip intertrochanteric fracture Open LEFT distal femur fracture Open LEFT tibia fracture Closed RIGHT tibia fracture 09/05: RIGHT thoracotomy. Repair of chin and forehead laceration; I&D LEFT distal femur fx w/ IM nail; I&D, Closed reduction w/ ex-fix LEFT tibia. 09/06: Extubated. 09/07: Reduction and IM nail fixation left hip intertrochanteric fx, reduction and IM nail fixation right tibia 09/08: I&D LEFT femur ORIF, LEFT tibia nail fixation I&D and IM fixation Diet: NPO- Place NGT, keep to Pulmonary: IS, encouraged use Pain: [place], Dilaudid IV Activity: OOB. PT and OT evaluating GI: Pepcid Bowel: Rosette-colace. Lactulose QD. LBM: 0 DVT: SCDs, Lovenox 40 QD Penetrating chest trauma 09/05: RIGHT thoracotomy Chest tube on water seal Plan to discontinue chest tube when drainage decreases. CT drained 200mL overnight CXR shows small apical pneumothorax CXR in AM to eval for CT removal Closed LEFT hip intertrochanteric fx, Open LEFT distal femur fx,Open LEFT tibia fx, Closed RIGHT tibia fx Orthopedics consulted 09/05: RIGHT thoracotomy. Repair of chin and forehead laceration; I&D LEFT distal femur fx w/ IM nail; I&D, Closed reduction w/ ex-fix LEFT tibia 09/07: Reduction and IM nail fixation left hip intertrochanteric fx, reduction and IM nail fixation right tibia 09/08: I&D LEFT femur ORIF, LEFT tibia nail fixation I&D and IM fixation IV antibiotics: complete Pain control PT - OOB NWB LLE, WBAT for transfers RLE Hgb 7.8 today, Labs in AM Ileus Stat CT Abd/Pelvis- shows dilated small bowel, no evidence of perforation NPO Place NGT- keep to medium continuous suction Lactulose 60 mL 1 Enema x2 Plan of care discussed with patient and RN at bedside. Case management consulted to assist with discharge planning. Campbell Yoo Sep 10, 2016 14:16
[2016-09-10] MEDS ORDERED: IOHEXOL 350 MG/ML 10 ML VIAL (for RAD DIAG) IV ONE (14:57)
--- NOTE | 2016-09-10 15:28 | RADRPT ---
EXAM DATE/TIME: 09/10/2016 14:52 [facility] COMPARISON: CT ABDOMEN & PELVIS W CONTRAST, September 05, 2016, 7:47. INDICATIONS : Diffuse abdomen pain and vomiting today. IV CONTRAST: 72 cc Omnipaque 350 (iohexol) IV ORAL CONTRAST: No oral contrast ingested. RADIATION DOSE: 15.21 CTDIvol (mGy) MEDICAL HISTORY : None SURGICAL HISTORY : None. ENCOUNTER: Initial ACUITY: 1 day PAIN SCALE: 7/10 LOCATION: Bilateral abdomen TECHNIQUE: Volumetric scanning of the abdomen and pelvis was performed. Using automated exposure control and ad justment of the mA and/or kV according to patient size, radiation dose was kept as low as reasonably achievable to obtain optimal diagnostic quality images. FINDINGS: LOWER LUNGS: Visualized on bases demonstrate a right sided chest tube in place. There is no pneumothorax. Trace le ft pleural effusion. Bibasilar airspace consolidation. LIVER: Homogeneous density without lesion. The previously described segment 7 lesion is not well demonstrat ed due to to phase of technique and artifact from patient's arms overlying his abdomen. There is no d ilation of the biliary tree. No calcified gallstones. SPLEEN: Normal size without lesion. PANCREAS: Within normal limits. KIDNEYS: Kidneys are symmetrical in size and demonstrate symmetrical enhancement. Subcentimeter hypodense lesi on in the left kidney is too small to fully characterize. No hydronephrosis. ADRENAL GLANDS: Within normal limits. VASCULAR: There is no aortic aneurysm. BOWEL/MESENTERY: There is an NGT terminating in the distal stomach. Small bowel loops are diffusely fluid filled and m ildly dilated. No definite transition point is identified. Air and stool is seen throughout the colon extending to the rectum. There is minimal free fluid noted in the deep pelvis. ABDOMINAL WALL: Within normal limits. RETROPERITONEUM: There is no lymphadenopathy. BLADDER: Bladder is completely decompressed secondary to Domingo catheter. REPRODUCTIVE: Unremarkable INGUINAL: There is no lymphadenopathy or hernia. MUSCULOSKELETAL: Intramedullary kelsey fixation of left intertrochanteric femoral fracture. CONCLUSION: 1. Diffuse fluid-filled mildly dilated small bowel loops without a definite transition point most con sistent with moderate adynamic ileus. There is an NGT in the distal stomach. No evidence for perforat ion or bowel infarction. 2. Trace left pleural effusion with bibasilar airspace consolidation reflecting atelectasis or less l ikely contusions. 3. Trace free fluid in the deep pelvis. 1. Maximilian Orbien MD on September 10, 2016 at 15:15 Board Certified Radiologist. This report was verified electronically.
[2016-09-10] MEDS ORDERED: LACTULOSE SYRUP 20 GM/30 ML CUP PO ONE (16:15)
--- NOTE | 2016-09-10 19:00 | PD.ORT.PN ---
Subjective Subjective Remarks n/v, abd distension. no CP/SOB Objective Vitals Vital Signs Date Time Temp Pulse Resp B/P Pulse Ox O2 Delivery O2 Flow Rate FiO2 09/10/16 16:00 97.0 97 18 134/84 92 09/10/16 12:00 97.6 87 18 132/82 92 09/10/16 09:53 96 Nasal Cannula 2.00 09/10/16 08:40 99 Nasal Cannula 2.00 09/10/16 08:00 97.9 86 18 139/91 96 09/10/16 05:17 18 09/10/16 05:15 18 09/10/16 04:00 98.8 90 18 142/89 98 09/10/16 00:00 100.3 100 18 135/83 99 09/09/16 20:56 18 09/09/16 20:50 Nasal Cannula 4.00 09/09/16 20:00 18 09/09/16 20:00 100.3 111 16 130/74 95 09/09/16 20:00 Nasal Cannula 2.00 I/O 09/09/16 09/09/16 09/09/16 09/10/16 09/10/16 09/10/16 07:00 15:00 23:00 07:00 15:00 23:00 Intake Total 563 ml 1019 ml 1233 ml 691 ml Output Total 697 ml 700 ml 1140 ml 660 ml 675 ml Balance -134 ml 319 ml 93 ml 31 ml -675 ml Intake Oral 240 ml 600 ml 600 ml 120 ml IV Total 323 ml 419 ml 633 ml 571 ml Output Urine Total 675 ml 700 ml 1050 ml 550 ml 650 ml Chest Tube Drainage Total 22 ml 90 ml 110 ml 25 ml # Bowel Movements 0 0 0 0 0 Result Diagram: 09/10/1628 09/07/16 0643 Imaging Last 24 hours Impressions Thoracic Spine CT 09/05/16743 Signed Impressions: Service Date/Time: Monday, September 05, 2016 07:53 - CONCLUSION: Old compression deformity of L1. No evidence of acute bony injury. Subcutaneous emphysema within the right side along the back. Malik De La Garza MD Lumbar Spine CT 09/05/1644 Signed Impressions: Service Date/Time: Monday, September 05, 2016 07:53 - CONCLUSION: Old compression deformity of L1. No acute bony abnormality. Malik De La Garza MD Head CT 09/05/16743 Signed Impressions: Service Date/Time: Monday, September 05, 2016 07:47 - CONCLUSION: No evidence of acute intracranial trauma Intact skull Malik De La Garza MD Cervical Spine CT 09/05/16743 Signed Impressions: Service Date/Time: Monday, September 05, 2016 07:49 - CONCLUSION: Normal CT of the cervical spine. No evidence of significant soft tissue or bony trauma. Malik De La Garza MD Chest CT 09/05/16721 Signed Impressions: Service Date/Time: Monday, September 05, 2016 07:53 - CONCLUSION: 1. Soft tissue injury with a large laceration along the right lateral chest wall. Large foreign body is identified within the defect. 2. Minimal airspace disease left lung base. 3. No other significant soft tissue injury. 4. Intact osseous structures. Malik De La Garza MD Abdomen/Pelvis CT 09/05/16721 Signed Impressions: Service Date/Time: Monday, September 05, 2016 07:47 - CONCLUSION: 1. Hyperdense focus in the right hepatic lobe beneath the dome of the diaphragm most characteristic of a small hemangioma. Focal contrast extravasation cannot be completely excluded however there are no other surrounding traumatic changes. 2. Large soft tissue defect with associated subcutaneous cutaneous emphysema along the right lateral chest wall consistent with laceration and tissue injury. Small foreign bodies are seen. 3. Intertrochanteric fracture of the proximal left femur. 4. No other evidence of significant soft tissue or bony trauma Malik De La Garza MD Objective Remarks NGtube in place Left leg: Clean dry dressings intact. Knee immobilizer in place. Distally good capillary refills in distal pulses. Right leg: Clean dry dressings in place, Calf and thigh compartments soft. Good capillary refill right foot. Assessment & Plan Assessment and Plan Left hip intertrochanteric fracture--postop day #3 status post IM nail Closed right tibia shaft fracture--postop day #3 status post IM nail Open left distal femur fracture--postop day #2 status post ORIF Open left tibia shaft fracture--- postop day #2 status post IM nail Abd distention, n/v- NG tube in place Hb 7.8, stable Physical therapy: right lower extremity weightbearing as tolerated for transfers only Left lower extremity: Nonweightbearing, knee immobilizer in place with no active leglifts or quad sets. Passive range of motion of knee from 0-90 Lovenox Discharge planning Orthopedic surgeries are completed this point Incentive spirometry Sergei Landrum Jr., MD Sep 10, 2016 19:00
[2016-09-11] VITALS (9 sets, daily range): BP systolic 131–148; BP diastolic 76–88; PULSE 81–100; RESP 16–20; TEMP 96.6–99.2; O2SAT 94–99
[2016-09-11] MEDS: HYDROmorphone HCL PF 1 MG/ML VIAL IV PUSH PRN ×4 (05:36→23:40)
[2016-09-11] MEDS ORDERED: ERGO1CAP30 PO (06:07)
[2016-09-11] MEDS ORDERED: XARE10TA PO (06:07)
[2016-09-11] MEDS ORDERED: WHEEMIS3 (06:07)
[2016-09-11] MEDS ORDERED: HYDR-3583 PO (06:07)
[2016-09-11] MEDS ORDERED: CALCTAB19 PO (06:07)
[2016-09-11 06:21] LABS: BASOPHIL % 0.3 % (0.0-2.0); EOSINOPHIL # 0.1 TH/MM3 (0-0.4); EOSINOPHIL % 0.5 % (0.0-4.0); HEMATOCRIT 24.1 % (39.0-51.0); LYMPH % 7.9 % (9.0-44.0); LYMPHOCYTE # 1.5 TH/MM3 (1.0-4.8); MEAN CELL VOLUME 87.4 FL (80.0-100.0); MEAN CORPUSCULAR HEMOGLOBIN 28.6 PG (27.0-34.0); MEAN CORPUSCULAR HGB CONC 32.8 % (32.0-36.0); MONO % 10.5 % (0.0-8.0); NEUT % 80.8 % (16.0-70.0); PLATELET COUNT 342 TH/MM3 (150-450); RED BLOOD COUNT 2.76 MIL/MM3 (4.50-5.90); RED CELL DISTRIBUTION WIDTH 14.9 % (11.6-17.2); WHITE BLOOD COUNT 18.6 TH/MM3 (4.0-11.0)
[2016-09-11 06:41] LABS: BICARBONATE 26.7 MEQ/L (21.0-32.0); MAGNESIUM 2.2 MG/DL (1.5-2.5); POTASSIUM 3.8 MEQ/L (3.5-5.1)
--- NOTE | 2016-09-11 06:46 | PD.ORT.PN ---
Subjective Subjective Remarks Awake and alert Objective Vitals Vital Signs Date Time Temp Pulse Resp B/P Pulse Ox O2 Delivery O2 Flow Rate FiO2 09/11/16 04:00 96.6 99 20 146/88 99 09/11/16 03:28 94 Nasal Cannula 09/11/16 00:00 96.6 99 18 148/83 94 09/10/16 20:00 96.6 91 20 153/86 94 09/10/16 18:48 Nasal Cannula 2.00 09/10/16 16:00 97.0 97 18 134/84 92 09/10/16 12:00 97.6 87 18 132/82 92 09/10/16 09:53 96 Nasal Cannula 2.00 09/10/16 08:40 99 Nasal Cannula 2.00 09/10/16 08:00 97.9 86 18 139/91 96 I/O 09/10/16 09/10/16 09/10/16 09/11/16 09/11/16 09/11/16 07:00 15:00 23:00 07:00 15:00 23:00 Intake Total 691 ml Output Total 660 ml 675 ml 350 ml 850 ml Balance 31 ml -675 ml -350 ml -850 ml Intake Oral 120 ml IV Total 571 ml Output Urine Total 550 ml 650 ml 350 ml 800 ml Gastric Drainage Total 0 ml 50 ml Chest Tube Drainage Total 110 ml 25 ml 0 ml 0 ml # Bowel Movements 0 0 0 0 Result Diagram: 09/10/16 0928 09/11/16 0524 Imaging Last 24 hours Impressions Thoracic Spine CT 09/05/16743 Signed Impressions: Service Date/Time: Monday, September 05, 2016 07:53 - CONCLUSION: Old compression deformity of L1. No evidence of acute bony injury. Subcutaneous emphysema within the right side along the back. Malik De La Garza MD Lumbar Spine CT 09/05/16743 Signed Impressions: Service Date/Time: Monday, September 05, 2016 07:53 - CONCLUSION: Old compression deformity of L1. No acute bony abnormality. Malik De La Garza MD Head CT 09/05/16743 Signed Impressions: Service Date/Time: Monday, September 05, 2016 07:47 - CONCLUSION: No evidence of acute intracranial trauma Intact skull Malik De La Garza MD Cervical Spine CT 09/05/16743 Signed Impressions: Service Date/Time: Monday, September 05, 2016 07:49 - CONCLUSION: Normal CT of the cervical spine. No evidence of significant soft tissue or bony trauma. Malik De La Garza MD Chest CT 09/05/16721 Signed Impressions: Service Date/Time: Monday, September 05, 2016 07:53 - CONCLUSION: 1. Soft tissue injury with a large laceration along the right lateral chest wall. Large foreign body is identified within the defect. 2. Minimal airspace disease left lung base. 3. No other significant soft tissue injury. 4. Intact osseous structures. Malik De La Garza MD Abdomen/Pelvis CT 09/05/16721 Signed Impressions: Service Date/Time: Monday, September 05, 2016 07:47 - CONCLUSION: 1. Hyperdense focus in the right hepatic lobe beneath the dome of the diaphragm most characteristic of a small hemangioma. Focal contrast extravasation cannot be completely excluded however there are no other surrounding traumatic changes. 2. Large soft tissue defect with associated subcutaneous cutaneous emphysema along the right lateral chest wall consistent with laceration and tissue injury. Small foreign bodies are seen. 3. Intertrochanteric fracture of the proximal left femur. 4. No other evidence of significant soft tissue or bony trauma Malik De La Garza MD Objective Remarks NGtube in place Left leg: Clean dry dressings intact. Knee immobilizer in place. Distally good capillary refills and distal pulses.Improved motion. weak dorsoflexion Right leg: Clean dry dressings in place, Calf and thigh compartments soft. Good capillary refill right foot. Assessment & Plan Assessment and Plan Left hip intertrochanteric fracture--postop day #4 status post IM nail Closed right tibia shaft fracture--postop day #4 status post IM nail Open left distal femur fracture--postop day #3 status post ORIF Open left tibia shaft fracture--- postop day #3 status post IM nail Abd distention, n/v- NG tube in place Hb 7.8, stable Physical therapy: right lower extremity weightbearing as tolerated for transfers only Left lower extremity: Nonweightbearing, knee immobilizer in place with no active leglifts or quad sets. Passive range of motion of knee from 0-90 Lovenox Discharge planning Orthopedic surgeries are completed at this point Incentive spirometry Thien Mae Jr. PA Sep 11, 2016 06:46
[2016-09-11 06:51] LABS: HEMO FLAGS AUTO DIFF
[2016-09-11] MEDS ORDERED: BISACODYL 10 MG SUPP RECTAL ONE (07:30)
--- NOTE | 2016-09-11 07:30 | RADRPT ---
EXAM DATE/TIME: 09/11/2016 06:34 [facility] COMPARISON: CT ABDOMEN & PELVIS W CONTRAST, September 10, 2016, 14:52. CHEST SINGLE AP, September 10, 2016, 8:19. INDICATIONS : Right chest tube. MEDICAL HISTORY : Chest tube SURGICAL HISTORY : Femur ENCOUNTER: Subsequent ACUITY: 4 - 6 days PAIN SCORE: 10/10 LOCATION: Right chest FINDINGS: Stable right apical chest tube in place. Interval placement of nasogastric catheter with tip beyond t he GE junction omitted from this image. No significant residual pneumothorax. Linear opacities in the left lung base consistent with atelectasis. Cardiomediastinal contours are within normal limits. Rem ainder of the exam is unchanged. CONCLUSION: 1. Stable apical chest tube without significant residual pneumothorax. 2. NGT with tip beyond the GE junction omitted from this exam. 3. Stable left lower lung zone atelectasis. Maximilian Obrien MD on September 11, 2016 at 7:25 Board Certified Radiologist. This report was verified electronically.
[2016-09-11 08:07] LABS: BANDS 2 % (0-6); MYELOCYTES 3 % (0-0); NEUTROPHIL # MANUAL DIFF 16.7 TH/MM3 (1.8-7.7); PLATELET ESTIMATE SMEAR NORMAL (NORMAL); PLATELET MORPHOLOGY NORMAL (NORMAL); POLYS (SEG NEUTROPHILS) 85 % (16-70); SCAN/DIFF FINAL DIFF MANUAL; WBC DIFF SAMPLE 100
[2016-09-11] MEDS: SODIUM CHLORIDE 0.9% FLUSH 5 ML FLUSH IVF SCH ×2 (09:00→20:56)
[2016-09-11] MEDS: THIAMINE HCL 100 MG TAB PO SCH (10:27)
[2016-09-11] MEDS: FOLIC ACID 1 MG TAB PO SCH (10:27)
[2016-09-11] MEDS: ENOXAPARIN SODIUM 30 MG/0.3 ML SYRINGE SQ SCH ×2 (10:27→20:55)
[2016-09-11] MEDS: CHOLECALCIFEROL (VIT D3) 1000 UNIT TAB PO SCH (10:27)
[2016-09-11] MEDS: LACTULOSE SYRUP 20 GM/30 ML CUP PO SCH (10:28)
[2016-09-11] MEDS: POLYETHYLENE GLYCOL 17 GM PKG PO SCH (10:28)
[2016-09-11] MEDS: DOCUSATE SODIUM 100 MG CAP NG SCH ×2 (10:28→20:55)
[2016-09-11] MEDS: SENNOSIDES SYRUP 8.8 MG/5 ML CUP NG SCH ×2 (10:29→20:55)
[2016-09-11] MEDS ORDERED: MAGNESIUM CITRATE SOLN 300 ML BTL PO ONE (10:45)
[2016-09-11] MEDS ORDERED: MAGNESIUM CITRATE SOLN 300 ML BTL NG ONE (11:00)
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
[2016-09-11] MEDS: DEXT 5%-NACL 0.45% 1000 ML INJ 1,000 ML IV SCH ×2 (12:57→20:54)
[2016-09-11] MEDS: PANTOPRAZOLE SODIUM 40 MG VIAL IV PUSH SCH (14:51)
[2016-09-12 04:35] VITALS: BP 126/79; PULSE 92; RESP 16; TEMP 96.5; O2SAT 96
[2016-09-12] MEDS: HYDROmorphone HCL PF 1 MG/ML VIAL IV PUSH PRN ×7 (05:04→22:45)
--- NOTE | 2016-09-12 06:29 | PD.ORT.PN ---
Subjective Subjective Remarks Awake and alert Objective Vitals Vital Signs Date Time Temp Pulse Resp B/P Pulse Ox O2 Delivery O2 Flow Rate FiO2 09/12/16 04:35 96.5 92 16 126/79 96 09/11/16 23:53 98.9 81 16 137/84 97 09/11/16 20:00 99.2 100 17 135/81 96 09/11/16 15:50 97.6 90 20 135/85 94 09/11/16 11:10 96.8 91 20 131/76 94 09/11/16 07:35 97.1 99 20 135/87 95 09/11/16 07:23 94 21 I/O 09/11/16 09/11/16 09/11/16 09/12/16 09/12/16 09/12/16 07:00 15:00 23:00 07:00 15:00 23:00 Intake Total 60 ml 368 ml Output Total 850 ml 700 ml 1050 ml Balance -850 ml -640 ml -682 ml Intake Oral 60 ml 0 ml IV Total 368 ml Output Urine Total 800 ml 650 ml 1050 ml Gastric Drainage Total 50 ml 50 ml 0 ml Chest Tube Drainage Total 0 ml 0 ml 0 ml # Bowel Movements 0 0 Result Diagram: 09/11/16 0529 09/11/16 0524 Imaging Last 24 hours Impressions Thoracic Spine CT 09/05/16743 Signed Impressions: Service Date/Time: Monday, September 05, 2016 07:53 - CONCLUSION: Old compression deformity of L1. No evidence of acute bony injury. Subcutaneous emphysema within the right side along the back. Malik De La Garza MD Lumbar Spine CT 09/05/16743 Signed Impressions: Service Date/Time: Monday, September 05, 2016 07:53 - CONCLUSION: Old compression deformity of L1. No acute bony abnormality. Malik De La Garza MD Head CT 09/05/16743 Signed Impressions: Service Date/Time: Monday, September 05, 2016 07:47 - CONCLUSION: No evidence of acute intracranial trauma Intact skull Malik De La Garza MD Cervical Spine CT 09/05/16743 Signed Impressions: Service Date/Time: Monday, September 05, 2016 07:49 - CONCLUSION: Normal CT of the cervical spine. No evidence of significant soft tissue or bony trauma. Malik De La Garza MD Chest CT 09/05/16721 Signed Impressions: Service Date/Time: Monday, September 05, 2016 07:53 - CONCLUSION: 1. Soft tissue injury with a large laceration along the right lateral chest wall. Large foreign body is identified within the defect. 2. Minimal airspace disease left lung base. 3. No other significant soft tissue injury. 4. Intact osseous structures. Malik De La Garza MD Abdomen/Pelvis CT 09/05/16721 Signed Impressions: Service Date/Time: Monday, September 05, 2016 07:47 - CONCLUSION: 1. Hyperdense focus in the right hepatic lobe beneath the dome of the diaphragm most characteristic of a small hemangioma. Focal contrast extravasation cannot be completely excluded however there are no other surrounding traumatic changes. 2. Large soft tissue defect with associated subcutaneous cutaneous emphysema along the right lateral chest wall consistent with laceration and tissue injury. Small foreign bodies are seen. 3. Intertrochanteric fracture of the proximal left femur. 4. No other evidence of significant soft tissue or bony trauma Malik De La Garza MD Objective Remarks NGtube in place Left leg: Clean dry dressings intact. Knee immobilizer in place. Distally good capillary refills and distal pulses.Improved motion. weak dorsoflexion Right leg: Clean dry dressings in place, Calf and thigh compartments soft. Good capillary refill right foot. Assessment & Plan Assessment and Plan Left hip intertrochanteric fracture--postop day #5 status post IM nail Closed right tibia shaft fracture--postop day #5 status post IM nail Open left distal femur fracture--postop day #4 status post ORIF Open left tibia shaft fracture--- postop day #4 status post IM nail Abd distention, n/v- NG tube in place Physical therapy: right lower extremity weightbearing as tolerated for transfers only Left lower extremity: Nonweightbearing, knee immobilizer in place with no active leglifts or quad sets. Passive range of motion of knee from 0-90 Lovenox Discharge planning Orthopedic surgeries are completed at this point Incentive spirometry Thien Mae Jr. Sep 12, 2016 06:29
--- NOTE | 2016-09-12 06:54 | RADRPT ---
EXAM DATE/TIME: 09/12/2016 05:49 [facility] COMPARISON: CHEST SINGLE AP, September 11, 2016, 6:34. INDICATIONS : Short of breath. MEDICAL HISTORY : None. SURGICAL HISTORY : None. ENCOUNTER: Subsequent ACUITY: 1 week PAIN SCORE: Non-responsive. LOCATION: Bilateral chest FINDINGS: Improved bibasilar atelectasis, both sides now minimal. A tiny left pleural effusion likely persists. I don't see a pneumothorax. Right chest tube remains in place, tip at the apex. There is a nasogastric tube coursing into the sto mach.. CONCLUSION: Decreasing bibasilar atelectasis, now minimal. Right chest tube remains in place. No pneumothorax. Stephan Navarrete MD on September 12, 2016 at 6:51 Board Certified Radiologist. This report was verified electronically.
[2016-09-12 08:00] VITALS: BP 126/73; PULSE 101; RESP 18; TEMP 96.3; O2SAT 98
[2016-09-12] MEDS: POLYETHYLENE GLYCOL 17 GM PKG PO SCH (09:00)
[2016-09-12] MEDS: SODIUM CHLORIDE 0.9% FLUSH 5 ML FLUSH IVF SCH ×2 (09:00→20:37)
[2016-09-12] MEDS: DOCUSATE SODIUM 100 MG CAP NG SCH ×2 (09:00→20:28)
[2016-09-12] MEDS: CHOLECALCIFEROL (VIT D3) 1000 UNIT TAB PO SCH (09:41)
[2016-09-12] MEDS: FOLIC ACID 1 MG TAB PO SCH (09:42)
[2016-09-12] MEDS: SENNOSIDES SYRUP 8.8 MG/5 ML CUP NG SCH ×2 (09:42→20:29)
[2016-09-12] MEDS: THIAMINE HCL 100 MG TAB PO SCH (09:42)
[2016-09-12] MEDS: ENOXAPARIN SODIUM 30 MG/0.3 ML SYRINGE SQ SCH ×2 (09:43→22:47)
[2016-09-12] MEDS: LACTULOSE SYRUP 20 GM/30 ML CUP PO SCH (09:43)
[2016-09-12 09:48] VITALS: O2SAT 97
[2016-09-12 12:00] VITALS: BP 125/80; PULSE 108; RESP 19; TEMP 95.8; O2SAT 95
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
--- NOTE | 2016-09-12 13:00 | RADRPT ---
EXAM DATE/TIME: 09/12/2016 12:15 [facility] COMPARISON: CHEST SINGLE AP, September 12, 2016, 5:49. INDICATIONS : Rule out ileus. MEDICAL HISTORY : Chest tube SURGICAL HISTORY : Left hip, Left femur, Left tibia. ENCOUNTER: Subsequent ACUITY: 1 week PAIN SCORE: 10/10 LOCATION: Bilateral Abdomen FINDINGS: The nasogastric tubes in good position. The bowel gas pattern is within normal limits. Note is made of post surgical changes in the left hip. CONCLUSION: 1. NG tube in good position. 2. Normal appearing bowel gas pattern. Hamilton Peeryra MD on September 12, 2016 at 12:57 Board Certified Radiologist. This report was verified electronically.
[2016-09-12] MEDS: BACITRACIN TOP OINT 15 GM TUBE TOPICAL SCH ×2 (13:30→20:37)
[2016-09-12] MEDS: PANTOPRAZOLE SODIUM 40 MG VIAL IV PUSH SCH (15:32)
[2016-09-12 16:00] VITALS: BP 122/77; PULSE 94; RESP 17; TEMP 95.1; O2SAT 99
--- NOTE | 2016-09-12 17:35 | RADRPT ---
EXAM DATE/TIME: 09/12/2016 16:44 [facility] COMPARISON: TIBIA/FIBULA LEFT (AP/LAT), September 08, 2016, 8:40. INDICATIONS : Left ankle pain. MEDICAL HISTORY : None. SURGICAL HISTORY : Left hip, Left femur, Left tibia. ENCOUNTER: Subsequent ACUITY: 4 - 6 days PAIN SCORE: 10/10 LOCATION: Left ankle. FINDINGS: There is an intramedullary kelsey seen through the tibia secured distally with three screws. This is we ll placed. This successfully reduces the mid tibular shaft fracture. Again noted is fracturing of t he distal fibular shaft. There is only minimal lateral angulation at the fracture site at the fibula . The ankle is normally aligned. CONCLUSION: Good placement of an intramedullary kelsey in the tibia. Stephan Avendano MD on September 12, 2016 at 17:23 Board Certified Radiologist. This report was verified electronically.
[2016-09-12 20:00] VITALS: BP 135/82; PULSE 101; RESP 19; TEMP 96.7; O2SAT 96
[2016-09-12] MEDS: BACITRACIN TOP OINT 15 GM TUBE TOPICAL PRN (20:37)
[2016-09-13] VITALS (9 sets, daily range): BP systolic 125–159; BP diastolic 70–99; PULSE 90–111; RESP 17–19; TEMP 96–99.7; O2SAT 94–99
[2016-09-13] MEDS: HYDROmorphone HCL PF 1 MG/ML VIAL IV PUSH PRN ×8 (01:13→23:58)
[2016-09-13] MEDS: DEXT 5%-NACL 0.45% 1000 ML INJ 1,000 ML IV SCH (01:13)
[2016-09-13 05:51] LABS: AUTOMATED NEUTROPHIL # 15.5 TH/MM3 (1.8-7.7); BASOPHIL % 0.2 % (0.0-2.0); EOSINOPHIL # 0.6 TH/MM3 (0-0.4); EOSINOPHIL % 2.7 % (0.0-4.0); HEMATOCRIT 26.9 % (39.0-51.0); LYMPH % 13.3 % (9.0-44.0); LYMPHOCYTE # 2.7 TH/MM3 (1.0-4.8); MEAN CELL VOLUME 87.8 FL (80.0-100.0); MEAN CORPUSCULAR HGB CONC 34.2 % (32.0-36.0); MONO % 8.3 % (0.0-8.0); NEUT % 75.5 % (16.0-70.0); PLATELET COUNT 621 TH/MM3 (150-450); RED BLOOD COUNT 3.06 MIL/MM3 (4.50-5.90); RED CELL DISTRIBUTION WIDTH 15.1 % (11.6-17.2); WHITE BLOOD COUNT 20.6 TH/MM3 (4.0-11.0)
[2016-09-13 05:52] LABS: HEMO FLAGS AUTO DIFF
[2016-09-13 06:01] LABS: BICARBONATE 24.1 MEQ/L (21.0-32.0)
[2016-09-13 06:04] LABS: CALCIUM-PROTEIN CORRECTED 7.7 MG/DL (8.5-10.1); TOTAL BILIRUBIN ADULT 0.7 MG/DL (0.2-1.0)
--- NOTE | 2016-09-13 06:57 | RADRPT ---
EXAM DATE/TIME: 09/13/2016 06:21 [facility] COMPARISON: CHEST SINGLE AP, September 12, 2016, 5:49. INDICATIONS : Chest pain. Follow-up trauma. MEDICAL HISTORY : None. SURGICAL HISTORY : None. ENCOUNTER: Subsequent ACUITY: 1 week PAIN SCORE: 2/10 LOCATION: Right chest FINDINGS: Trace atelectasis, mainly left base. Right chest tube is been removed. I don't see a pneumothorax. Heart size stable, within normal limits. Nasogastric tube again noted, versus into the stomach. CONCLUSION: Right chest tube out. No pneumothorax. Mild left base atelectasis. Stephan Navarrete MD on September 13, 2016 at 6:54 Board Certified Radiologist. This report was verified electronically.
--- NOTE | 2016-09-13 07:49 | PD.ORT.PN ---
Subjective Subjective Remarks Awake and alert Objective Vitals Vital Signs Date Time Temp Pulse Resp B/P Pulse Ox O2 Delivery O2 Flow Rate FiO2 09/13/16 04:35 96.0 97 18 135/83 97 09/13/16 00:30 97.2 90 17 140/99 96 09/12/16 20:00 96.7 101 19 135/82 96 09/12/16 19:00 16 09/12/16 16:00 95.1 94 17 122/77 99 09/12/16 12:00 95.8 108 19 125/80 95 09/12/16 09:53 Room Air 09/12/16 09:48 97 21 09/12/16 08:00 96.3 101 18 126/73 98 I/O 09/12/16 09/12/16 09/12/16 09/13/16 09/13/16 09/13/16 07:00 15:00 23:00 07:00 15:00 23:00 Intake Total 377 ml 1440 ml 1822 ml 720 ml Output Total 200 ml 1575 ml 250 ml 1750 ml Balance 177 ml -135 ml 1572 ml -1030 ml Intake Oral 1440 ml 1080 ml 720 ml IV Total 377 ml 742 ml Output Urine Total 1575 ml 250 ml 1750 ml Gastric Drainage Total 200 ml Chest Tube Drainage Total 0 ml 0 ml # Bowel Movements 0 0 Result Diagram: 09/13/16 0440 09/13/16 0440 Imaging Last 24 hours Impressions Thoracic Spine CT 09/05/16743 Signed Impressions: Service Date/Time: Monday, September 05, 2016 07:53 - CONCLUSION: Old compression deformity of L1. No evidence of acute bony injury. Subcutaneous emphysema within the right side along the back. Malik De La Garza MD Lumbar Spine CT 09/05/16743 Signed Impressions: Service Date/Time: Monday, September 05, 2016 07:53 - CONCLUSION: Old compression deformity of L1. No acute bony abnormality. Malik De La Garza MD Head CT 09/05/16743 Signed Impressions: Service Date/Time: Monday, September 05, 2016 07:47 - CONCLUSION: No evidence of acute intracranial trauma Intact skull Malik De La Garza MD Cervical Spine CT 09/05/16743 Signed Impressions: Service Date/Time: Monday, September 05, 2016 07:49 - CONCLUSION: Normal CT of the cervical spine. No evidence of significant soft tissue or bony trauma. Malik De La Garza MD Chest CT 09/05/16721 Signed Impressions: Service Date/Time: Monday, September 05, 2016 07:53 - CONCLUSION: 1. Soft tissue injury with a large laceration along the right lateral chest wall. Large foreign body is identified within the defect. 2. Minimal airspace disease left lung base. 3. No other significant soft tissue injury. 4. Intact osseous structures. Malik De La Garza MD Abdomen/Pelvis CT 09/05/16721 Signed Impressions: Service Date/Time: Monday, September 05, 2016 07:47 - CONCLUSION: 1. Hyperdense focus in the right hepatic lobe beneath the dome of the diaphragm most characteristic of a small hemangioma. Focal contrast extravasation cannot be completely excluded however there are no other surrounding traumatic changes. 2. Large soft tissue defect with associated subcutaneous cutaneous emphysema along the right lateral chest wall consistent with laceration and tissue injury. Small foreign bodies are seen. 3. Intertrochanteric fracture of the proximal left femur. 4. No other evidence of significant soft tissue or bony trauma Malik De La Garza MD Objective Remarks NGtube in place Domingo in place Left leg: Clean dry dressings intact. Knee immobilizer in place. Distally good capillary refills and distal pulses.Improved motion. weak dorsoflexion Right leg: Clean dry dressings in place, Calf and thigh compartments soft. Good capillary refill right foot. Assessment & Plan Assessment and Plan Left hip intertrochanteric fracture--postop day #6 status post IM nail Closed right tibia shaft fracture--postop day #6 status post IM nail Open left distal femur fracture--postop day #5 status post ORIF Open left tibia shaft fracture--- postop day #5 status post IM nail Abdomen is continuing to improve, n/v- NG tube in place Domingo still in place, checked with trauma to see if Domingo can be removed Physical therapy: right lower extremity weightbearing as tolerated for transfers only Left lower extremity: Nonweightbearing, knee immobilizer in place with no active leglifts or quad sets. Passive range of motion of knee from 0-90 Lovenox Discharge planning Orthopedic surgeries are completed at this point Incentive spirometry Thien Mae Jr. 21, 2017 07:49
[2016-09-13] MEDS ORDERED: BISACODYL 10 MG SUPP RECTAL ONE (08:00)
[2016-09-13] MEDS ORDERED: BISACODYL EC 5 MG TABEC PO ONE (08:00)
[2016-09-13 08:53] LABS: BANDS 3 % (0-6); BASOPHILS 1 % (0-2); CORRECTED NUCLEATED RBC 1 /100 WBC (0-0); EOSINOPHILS 1 % (0-4); METAMYELOCYTES 2 % (0-1); MYELOCYTES 6 % (0-0); NEUTROPHIL # MANUAL DIFF 14.6 TH/MM3 (1.8-7.7); PLASMA CELLS 1 % (0-0); PLATELET ESTIMATE SMEAR HIGH (NORMAL); POLYS (SEG NEUTROPHILS) 60 % (16-70); WBC DIFF SAMPLE 100
[2016-09-13 08:54] LABS: PLATELET MORPHOLOGY ENLARGED (NORMAL); POLYCHROMASIA 2.4 % (0.0-1.9); TOXIC GRANULATION 1+ (NORMAL)
[2016-09-13 08:56] LABS: SCAN/DIFF FINAL DIFF MANUAL
[2016-09-13] MEDS: BACITRACIN TOP OINT 15 GM TUBE TOPICAL SCH ×2 (09:00→20:54)
[2016-09-13] MEDS: SODIUM CHLORIDE 0.9% FLUSH 5 ML FLUSH IVF SCH ×2 (09:00→20:55)
[2016-09-13] MEDS: SENNOSIDES SYRUP 8.8 MG/5 ML CUP NG SCH ×2 (09:00→20:50)
[2016-09-13] MEDS: CHOLECALCIFEROL (VIT D3) 1000 UNIT TAB PO SCH (09:24)
[2016-09-13] MEDS: FOLIC ACID 1 MG TAB PO SCH (09:24)
[2016-09-13] MEDS: DOCUSATE SODIUM 100 MG CAP NG SCH ×2 (09:24→20:50)
[2016-09-13] MEDS: THIAMINE HCL 100 MG TAB PO SCH (09:24)
[2016-09-13] MEDS: ENOXAPARIN SODIUM 30 MG/0.3 ML SYRINGE SQ SCH ×2 (09:25→21:12)
[2016-09-13] MEDS: LACTULOSE SYRUP 20 GM/30 ML CUP PO SCH (09:25)
[2016-09-13] MEDS: POLYETHYLENE GLYCOL 17 GM PKG PO SCH (09:25)
[2016-09-13] MEDS: BACITRACIN TOP OINT 15 GM TUBE TOPICAL PRN (09:26)
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
[2016-09-13] MEDS: CYCLOBENZAPRINE HCL 10 MG TAB PO SCH ×2 (16:36→21:12)
[2016-09-13] MEDS: KETOROLAC TROMETHAMINE 30 MG/ML (IVP) VIAL IV PUSH SCH ×2 (16:36→23:58)
[2016-09-13] MEDS: PANTOPRAZOLE SODIUM 40 MG VIAL IV PUSH SCH (16:36)
[2016-09-14] VITALS: BP 120/71; PULSE 98; RESP 18; TEMP 97.2; O2SAT 98
[2016-09-14] MEDS: HYDROmorphone HCL PF 1 MG/ML VIAL IV PUSH PRN ×3 (05:20→21:05)
[2016-09-14] MEDS: KETOROLAC TROMETHAMINE 30 MG/ML (IVP) VIAL IV PUSH SCH ×3 (05:20→17:33)
[2016-09-14] MEDS: CYCLOBENZAPRINE HCL 10 MG TAB PO SCH ×3 (05:20→21:05)
--- NOTE | 2016-09-14 07:45 | PD.ORT.PN ---
Subjective Subjective Remarks Awake and alert Objective Vitals Vital Signs Date Time Temp Pulse Resp B/P Pulse Ox O2 Delivery O2 Flow Rate FiO2 09/14/16 00:00 97.2 98 18 120/71 98 09/13/16 21:09 94 21 09/13/16 19:42 97.7 111 19 139/75 97 09/13/16 16:00 99.7 101 18 137/74 94 09/13/16 11:27 96.7 107 18 125/73 98 09/13/16 08:15 97 09/13/16 08:00 97.3 96 18 129/70 99 I/O 09/13/16 09/13/16 09/13/16 09/14/16 09/14/16 09/14/16 07:00 15:00 23:00 07:00 15:00 23:00 Intake Total 720 ml 960 ml 480 ml 240 ml Output Total 1750 ml 0 ml Balance -1030 ml 960 ml 480 ml 240 ml Intake Oral 720 ml 960 ml 480 ml 240 ml Output Urine Total 1750 ml 0 ml # Voids 2 3 # Bowel Movements 0 1 5 0 Result Diagram: 09/13/16 0440 09/13/16 0440 Imaging Last 24 hours Impressions Thoracic Spine CT 09/05/16743 Signed Impressions: Service Date/Time: Monday, September 05, 2016 07:53 - CONCLUSION: Old compression deformity of L1. No evidence of acute bony injury. Subcutaneous emphysema within the right side along the back. Malik De La Garza MD Lumbar Spine CT 09/05/16743 Signed Impressions: Service Date/Time: Monday, September 05, 2016 07:53 - CONCLUSION: Old compression deformity of L1. No acute bony abnormality. Malik De La Garza MD Head CT 09/05/16743 Signed Impressions: Service Date/Time: Monday, September 05, 2016 07:47 - CONCLUSION: No evidence of acute intracranial trauma Intact skull Malik De La Garza MD Cervical Spine CT 09/05/16743 Signed Impressions: Service Date/Time: Monday, September 05, 2016 07:49 - CONCLUSION: Normal CT of the cervical spine. No evidence of significant soft tissue or bony trauma. Malik De La Garza MD Chest CT 09/05/1622 Signed Impressions: Service Date/Time: Monday, September 05, 2016 07:53 - CONCLUSION: 1. Soft tissue injury with a large laceration along the right lateral chest wall. Large foreign body is identified within the defect. 2. Minimal airspace disease left lung base. 3. No other significant soft tissue injury. 4. Intact osseous structures. Malik De La Garza MD Abdomen/Pelvis CT 09/05/16 0722 Signed Impressions: Service Date/Time: Monday, September 05, 2016 07:47 - CONCLUSION: 1. Hyperdense focus in the right hepatic lobe beneath the dome of the diaphragm most characteristic of a small hemangioma. Focal contrast extravasation cannot be completely excluded however there are no other surrounding traumatic changes. 2. Large soft tissue defect with associated subcutaneous cutaneous emphysema along the right lateral chest wall consistent with laceration and tissue injury. Small foreign bodies are seen. 3. Intertrochanteric fracture of the proximal left femur. 4. No other evidence of significant soft tissue or bony trauma Malik De La Garza MD Objective Remarks Left leg: Clean dry dressings intact. Knee immobilizer in place. Distally good capillary refills and distal pulses.Improved motion. weak dorsoflexion Right leg: Clean dry dressings in place, Calf and thigh compartments soft. Good capillary refill right foot. Assessment & Plan Assessment and Plan Left hip intertrochanteric fracture--postop day #7 status post IM nail Closed right tibia shaft fracture--postop day #7 status post IM nail Open left distal femur fracture--postop day #6 status post ORIF Open left tibia shaft fracture--- postop day #6 status post IM nail Physical therapy: right lower extremity weightbearing as tolerated for transfers only Left lower extremity: Nonweightbearing, knee immobilizer in place with no active leglifts or quad sets. Passive range of motion of knee from 0-90 Lovenox Discharge planning Orthopedic surgeries are completed at this point Incentive spirometry Thien Mae Jr. Sep 14, 2016 07:45
[2016-09-14 08:00] VITALS: BP 122/69; PULSE 110; RESP 16; TEMP 96.9; O2SAT 97
[2016-09-14] MEDS: SODIUM CHLORIDE 0.9% FLUSH 5 ML FLUSH IVF SCH ×2 (09:00→21:00)
[2016-09-14] MEDS: DOCUSATE SODIUM 100 MG CAP NG SCH ×2 (09:00→21:04)
[2016-09-14] MEDS: SENNOSIDES SYRUP 8.8 MG/5 ML CUP NG SCH ×2 (09:45→21:00)
[2016-09-14] MEDS: ENOXAPARIN SODIUM 30 MG/0.3 ML SYRINGE SQ SCH ×2 (09:45→21:05)
[2016-09-14] MEDS: LACTULOSE SYRUP 20 GM/30 ML CUP PO SCH (09:46)
[2016-09-14] MEDS: FOLIC ACID 1 MG TAB PO SCH (09:46)
[2016-09-14] MEDS: POLYETHYLENE GLYCOL 17 GM PKG PO SCH (09:46)
[2016-09-14] MEDS: BACITRACIN TOP OINT 15 GM TUBE TOPICAL SCH ×2 (09:47→21:00)
[2016-09-14] MEDS: CHOLECALCIFEROL (VIT D3) 1000 UNIT TAB PO SCH (09:47)
[2016-09-14] MEDS: THIAMINE HCL 100 MG TAB PO SCH (09:47)
[2016-09-14 12:00] VITALS: BP 136/80; PULSE 103; RESP 16; TEMP 97.4; O2SAT 97
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
[2016-09-14] MEDS: PANTOPRAZOLE SODIUM 40 MG VIAL IV PUSH SCH (13:36)
[2016-09-14] MEDS ORDERED: oxyCODONE/ACETAMINOPHEN 5 MG/325 MG TAB PO PRN (13:45)
[2016-09-14 16:00] VITALS: BP 120/76; PULSE 82; RESP 18; TEMP 98; O2SAT 95
[2016-09-14] MEDS: oxyCODONE/ACETAMINOPHEN 5 MG/325 MG TAB PO PRN ×2 (17:33→22:10)
[2016-09-14 20:45] VITALS: BP 142/75; PULSE 114; RESP 16; TEMP 97.1; O2SAT 97
[2016-09-15] MEDS: KETOROLAC TROMETHAMINE 30 MG/ML (IVP) VIAL IV PUSH SCH ×4 (00:23→18:00)
[2016-09-15] MEDS: HYDROmorphone HCL PF 1 MG/ML VIAL IV PUSH PRN ×4 (00:24→22:45)
[2016-09-15 00:40] VITALS: BP 140/88; PULSE 109; RESP 17; TEMP 95.8; O2SAT 99
[2016-09-15] MEDS: oxyCODONE/ACETAMINOPHEN 5 MG/325 MG TAB PO PRN ×4 (03:06→19:23)
[2016-09-15] MEDS: CYCLOBENZAPRINE HCL 10 MG TAB PO SCH ×3 (05:23→21:56)
--- NOTE | 2016-09-15 07:05 | PD.ORT.PN ---
Subjective Subjective Remarks Awake and alert Objective Vitals Vital Signs Date Time Temp Pulse Resp B/P Pulse Ox O2 Delivery O2 Flow Rate FiO2 09/15/16 00:40 95.8 109 17 140/88 99 09/14/16 20:45 97.1 114 16 142/75 97 09/14/16 16:00 98.0 82 18 120/76 95 09/14/16 14:34 18 09/14/16 12:00 97.4 103 16 136/80 97 09/14/16 08:00 96.9 110 16 122/69 97 I/O 09/14/16 09/14/16 09/14/16 09/15/16 09/15/16 09/15/16 07:00 15:00 23:00 07:00 15:00 23:00 Intake Total 240 ml 600 ml 480 ml 240 ml Output Total 0 ml 800 ml Balance 240 ml -200 ml 480 ml 240 ml Intake Oral 240 ml 600 ml 480 ml 240 ml Output Urine Total 0 ml 800 ml # Voids 1 1 1 # Bowel Movements 0 0 0 0 Result Diagram: 09/13/160 09/13/16 0440 Imaging Last 24 hours Impressions Thoracic Spine CT 09/05/16743 Signed Impressions: Service Date/Time: Monday, September 05, 2016 07:53 - CONCLUSION: Old compression deformity of L1. No evidence of acute bony injury. Subcutaneous emphysema within the right side along the back. Malik De La Garza MD Lumbar Spine CT 09/05/16743 Signed Impressions: Service Date/Time: Monday, September 05, 2016 07:53 - CONCLUSION: Old compression deformity of L1. No acute bony abnormality. Malik De La Garza MD Head CT 09/05/16743 Signed Impressions: Service Date/Time: Monday, September 05, 2016 07:47 - CONCLUSION: No evidence of acute intracranial trauma Intact skull Malik De La Garza MD Cervical Spine CT 09/05/16743 Signed Impressions: Service Date/Time: Monday, September 05, 2016 07:49 - CONCLUSION: Normal CT of the cervical spine. No evidence of significant soft tissue or bony trauma. Malik De La Garza MD Chest CT 09/05/16721 Signed Impressions: Service Date/Time: Monday, September 05, 2016 07:53 - CONCLUSION: 1. Soft tissue injury with a large laceration along the right lateral chest wall. Large foreign body is identified within the defect. 2. Minimal airspace disease left lung base. 3. No other significant soft tissue injury. 4. Intact osseous structures. Malik De La Garza MD Abdomen/Pelvis CT 09/05/16 0722 Signed Impressions: Service Date/Time: Monday, September 05, 2016 07:47 - CONCLUSION: 1. Hyperdense focus in the right hepatic lobe beneath the dome of the diaphragm most characteristic of a small hemangioma. Focal contrast extravasation cannot be completely excluded however there are no other surrounding traumatic changes. 2. Large soft tissue defect with associated subcutaneous cutaneous emphysema along the right lateral chest wall consistent with laceration and tissue injury. Small foreign bodies are seen. 3. Intertrochanteric fracture of the proximal left femur. 4. No other evidence of significant soft tissue or bony trauma Malik De La Garza MD Objective Remarks Left leg: Clean dry dressings intact. Knee immobilizer in place. Distally good capillary refills and distal pulses.Improved motion. weak dorsoflexion Right leg: Clean dry dressings in place, Calf and thigh compartments soft. Good capillary refill right foot. Assessment & Plan Assessment and Plan Left hip intertrochanteric fracture--postop day #8 status post IM nail Closed right tibia shaft fracture--postop day #8 status post IM nail Open left distal femur fracture--postop day #7 status post ORIF Open left tibia shaft fracture--- postop day #7 status post IM nail Physical therapy: right lower extremity weightbearing as tolerated for transfers only Left lower extremity: Nonweightbearing, knee immobilizer in place with no active leglifts or quad sets. Passive range of motion of knee from 0-90 Lovenox Discharge planning Orthopedic surgeries are completed at this point Incentive spirometry Thien Mae Jr. Sep 15, 2016 07:05
[2016-09-15 07:35] LABS: AUTOMATED NEUTROPHIL # 16.6 TH/MM3 (1.8-7.7); BASOPHIL # 0.1 TH/MM3 (0-0.2); BASOPHIL % 0.7 % (0.0-2.0); EOSINOPHIL # 0.5 TH/MM3 (0-0.4); EOSINOPHIL % 2.5 % (0.0-4.0); HEMATOCRIT 27.1 % (39.0-51.0); LYMPH % 14.3 % (9.0-44.0); LYMPHOCYTE # 3.1 TH/MM3 (1.0-4.8); MEAN CORPUSCULAR HGB CONC 32.7 % (32.0-36.0); MONO % 5.8 % (0.0-8.0); NEUT % 76.7 % (16.0-70.0); PLATELET COUNT 846 TH/MM3 (150-450); RED BLOOD COUNT 3.05 MIL/MM3 (4.50-5.90); RED CELL DISTRIBUTION WIDTH 15.7 % (11.6-17.2); WHITE BLOOD COUNT 21.6 TH/MM3 (4.0-11.0)
[2016-09-15 07:41] LABS: HEMO FLAGS AUTO DIFF
[2016-09-15 07:54] LABS: ALKALINE PHOSPHATASE 101 U/L (45-117); ALT (GPT) 62 U/L (12-78); ANION GAP 8 MEQ/L (5-15); AST (GOT) 72 U/L (15-37); BICARBONATE 29.3 MEQ/L (21.0-32.0); BLOOD UREA NITROGEN 19 MG/DL (7-18); CHLORIDE 100 MEQ/L (98-107); GLOMERULAR FILTRATION RATE 147 ML/MIN (>89); POTASSIUM 3.7 MEQ/L (3.5-5.1); SODIUM (NA) 137 MEQ/L (136-145); TOTAL BILIRUBIN ADULT 0.5 MG/DL (0.2-1.0)
[2016-09-15 08:00] VITALS: BP 124/76; PULSE 108; RESP 16; TEMP 97.5; O2SAT 96
[2016-09-15 08:20] LABS: BANDS 6 % (0-6); EOSINOPHILS 2 % (0-4); METAMYELOCYTES 1 % (0-1); MYELOCYTES 6 % (0-0); PLATELET ESTIMATE SMEAR HIGH (NORMAL); PLATELET MORPHOLOGY NORMAL (NORMAL); POLYS (SEG NEUTROPHILS) 61 % (16-70); SCAN/DIFF FINAL DIFF MANUAL; WBC DIFF SAMPLE 100
[2016-09-15 08:21] LABS: TARGET CELLS 1+ (NORMAL)
[2016-09-15] MEDS: SODIUM CHLORIDE 0.9% FLUSH 5 ML FLUSH IVF SCH ×2 (08:22→19:22)
[2016-09-15] MEDS: FOLIC ACID 1 MG TAB PO SCH (08:23)
[2016-09-15] MEDS: SENNOSIDES SYRUP 8.8 MG/5 ML CUP NG SCH ×2 (08:23→19:23)
[2016-09-15] MEDS: ENOXAPARIN SODIUM 30 MG/0.3 ML SYRINGE SQ SCH ×2 (08:23→21:56)
[2016-09-15] MEDS: DOCUSATE SODIUM 100 MG CAP NG SCH ×2 (08:23→19:22)
[2016-09-15] MEDS: POLYETHYLENE GLYCOL 17 GM PKG PO SCH (08:24)
[2016-09-15] MEDS: LACTULOSE SYRUP 20 GM/30 ML CUP PO SCH (08:24)
[2016-09-15] MEDS: THIAMINE HCL 100 MG TAB PO SCH (08:24)
[2016-09-15] MEDS: BACITRACIN TOP OINT 15 GM TUBE TOPICAL SCH ×2 (08:25→21:00)
[2016-09-15] MEDS: CHOLECALCIFEROL (VIT D3) 1000 UNIT TAB PO SCH (08:26)
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
[2016-09-15 12:00] VITALS: BP 100/68; PULSE 114; RESP 16; TEMP 97.5; O2SAT 100
[2016-09-15] MEDS: ERGOCALCIFEROL (VIT D2) 50,000 UNIT CAP PO SCH (12:21)
[2016-09-15] MEDS: PANTOPRAZOLE SODIUM 40 MG VIAL IV PUSH SCH (12:40)
[2016-09-15] MEDS ORDERED: DOCU1CAP39 NG (15:45)
[2016-09-15] MEDS ORDERED: SENN8.8L NG (15:45)
[2016-09-15] MEDS ORDERED: TUB TRANSFER BO1 MIS (15:52)
[2016-09-15] MEDS ORDERED: BEDSIDE COMMODE1 MI1 (15:52)
[2016-09-15] MEDS: BACITRACIN TOP OINT 15 GM TUBE TOPICAL PRN (19:25)
--- NOTE | 2016-09-15 20:50 | HHI.FF ---
Face to Face Verification Diagnosis: (1) Open fracture of left tibia and fibula (2) Open left femoral fracture (3) Fracture of right tibia and fibula Physical Therapy Order: Evaluate and Treat, Improve ambulation, Strength and gait training Occupational Therapy Order: Evaluate and Treat, Improve ADL, Gross motor coordination, Fine motor coordination I have seen patient Aquilino Carson on 09/15/16. My clinical findings support the need for the requested home health care services because: Ltd mobility - disease progression Deconditioned w/ increased weakness Limited ability to care for self High risk of falls I certify that my clinical findings support that this patient is homebound because: Post-op weakness Unsteady gait/balance Unsafe to leave home unassisted [id number]-dboetnro bed/chair Unable to use public transportation Tootie Malloy Sep 15, 2016 20:49 [id number]-[id number] bed/chair Unable to use public transportation Tootie Malloy Sep 15, 2016 20:49
[2016-09-15 20:55] VITALS: BP 140/76; PULSE 116; RESP 17; TEMP 99; O2SAT 99
[2016-09-16 00:55] VITALS: BP 134/71; PULSE 123; RESP 18; TEMP 98.1; O2SAT 99
[2016-09-16] MEDS: HYDROmorphone HCL PF 1 MG/ML VIAL IV PUSH PRN (01:49)
[2016-09-16] MEDS: oxyCODONE/ACETAMINOPHEN 5 MG/325 MG TAB PO PRN ×4 (03:17→16:10)
[2016-09-16] MEDS: KETOROLAC TROMETHAMINE 30 MG/ML (IVP) VIAL IV PUSH SCH ×3 (06:16→11:55)
[2016-09-16] MEDS: CYCLOBENZAPRINE HCL 10 MG TAB PO SCH ×2 (06:16→14:30)
[2016-09-16 07:52] VITALS: BP 116/73; PULSE 97; RESP 19; TEMP 97.2; O2SAT 98
[2016-09-16] MEDS: POLYETHYLENE GLYCOL 17 GM PKG PO SCH (07:55)
[2016-09-16] MEDS: DOCUSATE SODIUM 100 MG CAP NG SCH (07:56)
[2016-09-16] MEDS: FOLIC ACID 1 MG TAB PO SCH (07:56)
[2016-09-16] MEDS: CHOLECALCIFEROL (VIT D3) 1000 UNIT TAB PO SCH (07:58)
[2016-09-16] MEDS: THIAMINE HCL 100 MG TAB PO SCH (07:58)
[2016-09-16] MEDS: ENOXAPARIN SODIUM 30 MG/0.3 ML SYRINGE SQ SCH (08:00)
[2016-09-16] MEDS ORDERED: MAGNESIUM CITRATE SOLN 300 ML BTL PO ONE (08:30)
[2016-09-16] MEDS: BACITRACIN TOP OINT 15 GM TUBE TOPICAL SCH (09:00)
[2016-09-16] MEDS: SODIUM CHLORIDE 0.9% FLUSH 5 ML FLUSH IVF SCH (09:00)
[2016-09-16] MEDS: SENNOSIDES SYRUP 8.8 MG/5 ML CUP NG SCH (09:00)
[2016-09-16] MEDS: LACTULOSE SYRUP 20 GM/30 ML CUP PO SCH (09:00)
[2016-09-16 12:00] VITALS: BP 115/72; PULSE 127; RESP 19; TEMP 95.3; O2SAT 98
[2016-09-16] MEDS: PANTOPRAZOLE SODIUM 40 MG VIAL IV PUSH SCH (16:00)
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
== END 2016-09-16 16:18 | disposition home health service (06) | DRG 956 ==
LOC: NEPI 07:19 → EDBD 08:02 → NEDA 08:02 → MERGE 08:02 → N03A 12:10 → N06A 09-06 18:48
PROVIDERS: ADMIT Surgery; ATTEND Surgery
PROC: 0QSH35Z Reposition Left Tibia with External Fixation Device, Percutaneous Approach (ICD-10-PCS; 2016-09-05)
PROC: 0JDP0ZZ Extraction of Left Lower Leg Subcutaneous Tissue and Fascia, Open Approach (ICD-10-PCS; 2016-09-05)
PROC: 0JDM0ZZ Extraction of Left Upper Leg Subcutaneous Tissue and Fascia, Open Approach (ICD-10-PCS; 2016-09-05)
PROC: 0BCN0ZZ Extirpation of Matter from Right Pleura, Open Approach (ICD-10-PCS; 2016-09-05)
PROC: 0HQ1XZZ Repair Face Skin, External Approach (ICD-10-PCS; 2016-09-05)
PROC: 0W9900Z Drainage of Right Pleural Cavity with Drainage Device, Open Approach (ICD-10-PCS; 2016-09-05)
PROC: 0BH17EZ Insertion of Endotracheal Airway into Trachea, Via Natural or Artificial Opening (ICD-10-PCS; 2016-09-05)
PROC: 5A1935Z Respiratory Ventilation, Less than 24 Consecutive Hours (ICD-10-PCS; 2016-09-05)
PROC: 0QSCXZZ Reposition Left Lower Femur, External Approach (ICD-10-PCS; 2016-09-05)
PROC: 30233N1 Transfusion of Nonautologous Red Blood Cells into Peripheral Vein, Percutaneous Approach (ICD-10-PCS; 2016-09-05)
PROC: 0QSC35Z Reposition Left Lower Femur with External Fixation Device, Percutaneous Approach (ICD-10-PCS; 2016-09-05 08:12)
PROC: 0JD60ZZ Extraction of Chest Subcutaneous Tissue and Fascia, Open Approach (ICD-10-PCS; 2016-09-05 08:12)
PROC: 0QS706Z Reposition Left Upper Femur with Intramedullary Internal Fixation Device, Open Approach (ICD-10-PCS; principal; 2016-09-07 08:35)
PROC: 0QSG06Z Reposition Right Tibia with Intramedullary Internal Fixation Device, Open Approach (ICD-10-PCS; 2016-09-07 08:35)
PROC: 0QSH06Z Reposition Left Tibia with Intramedullary Internal Fixation Device, Open Approach (ICD-10-PCS; 2016-09-08)
PROC: 0QPH35Z Removal of External Fixation Device from Left Tibia, Percutaneous Approach (ICD-10-PCS; 2016-09-08)
PROC: 0QSC04Z Reposition Left Lower Femur with Internal Fixation Device, Open Approach (ICD-10-PCS; 2016-09-08)
PROC: 3E0V329 Introduction of Other Anti-infective into Bones, Percutaneous Approach (ICD-10-PCS; 2016-09-08)
DX: S82.202B Unspecified fracture of shaft of left tibia, initial encounter for open fracture type I or II (principal); S27.0XXA Traumatic pneumothorax, initial encounter; S72.142A Displaced intertrochanteric fracture of left femur, initial encounter for closed fracture; J96.00 Acute respiratory failure, unspecified whether with hypoxia or hypercapnia; S21.341A Puncture wound with foreign body of right front wall of thorax with penetration into thoracic cavity, initial encounter; S72.452B Displaced supracondylar fracture without intracondylar extension of lower end of left femur, initial encounter for open fracture type I or II; S27.69XA Other injury of pleura, initial encounter; K56.7 Ileus, unspecified; S01.81XA Laceration without foreign body of other part of head, initial encounter; S82.201A Unspecified fracture of shaft of right tibia, initial encounter for closed fracture; D64.9 Anemia, unspecified; D72.829 Elevated white blood cell count, unspecified; V47.5XXA Car driver injured in collision with fixed or stationary object in traffic accident, initial encounter; Y92.410 Unspecified street and highway as the place of occurrence of the external cause; Z72.0 Tobacco use
CPT/HCPCS: 27510; 31500; 36430; 70450; 71010; 71260; 72125; 72128; 72131; 72170; 73502; 73551; 73552; 73560; 73590; 73610; 73700; 74000; 74177; 76000; 76937; 80048; 80053; 80076; 80307; 82435; 82565; 82652; 82805; 82947; 83605; 83735; 84100; 84132; 84295; 84520; 85007; 85014; 85018; 85025; 85027; 85384; 85610; 85730; 86850; 86900; 86901; 86920; 87641; 88300; 88305; 90715; 94002; 94003; 94150; 94640; 94667; 94668; 96374; 96375; 99291; C1713; C1769; C9113; E0880; G0390; J0131; J0690; J1170; J1200; J1580; J1650; J1885; J2250; J2370; J2405; J2543; J3010; J3370; J3480; J7030; J7120; L8699; P9016; Q9967

== ENCOUNTER → 2016-10-20 | Outpatient (CLI) | payer SELFPAY ==
[~2016-10-20] MED LIST changes: +BEDSIDE COMMODE1 MI1; +CALCTAB19 PO; +DOCU1CAP39 NG; +ERGO1CAP30 PO; +HYDR-3583 PO; +SENN8.8L NG; +TUB TRANSFER BO1 MIS; +WHEEMIS3; +XARE10TA PO
== END ==
LOC: HORT 15:35
PROVIDERS: ATTEND Physician Assistant
DX: Z47.89 Encounter for other orthopedic aftercare (principal)
CPT/HCPCS: L1830

== ENCOUNTER 2017-06-29 18:47 | Emergency (ER) | payer SELFPAY ==
[~2017-06-29] VITALS: Ht 175.3 cm; Wt 60.0 kg
[~2017-06-29 18:47] MED LIST changes: +ADDE15TA PO; -BEDSIDE COMMODE1 MI1; -CALCTAB19 PO; -CYCL-36 PO; +CYCL10TA PO; -DARV PO; -DOCU1CAP39 NG; -ERGO1CAP30 PO; -SENN8.8L NG; -TUB TRANSFER BO1 MIS; -WHEEMIS3; -XARE10TA PO; -Z.0.NO CURRENT MEDS
[2017-06-29 18:49] VITALS: BP 131/73; PULSE 103; RESP 16; TEMP 98.9; O2SAT 97
[2017-06-29] MEDS ORDERED: LIDOCAINE 1%/EPINEPHrine 1:100,000 SOLN 20 ML VIAL INFIL ONE (19:00)
[2017-06-29] MEDS ORDERED: CLIN150C14 PO (19:05)
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
[2017-06-29] MEDS ORDERED: NORC5TAB PO (19:23)
[2017-06-29] MEDS ORDERED: ACETAMINOPHEN/HYDROcodone 325 MG/5 MG TAB PO ONE (19:30)
[2017-06-29] MEDS ORDERED: CLINDAMYCIN 150 MG CAP PO ONE (19:30)
== END 2017-06-29 19:36 | disposition home or self-care (01) ==
LOC: PHEFT 18:47
DX: L05.01 Pilonidal cyst with abscess (principal); Z72.0 Tobacco use
CPT/HCPCS: 10061; 86403; 87070; 87205

== ENCOUNTER 2017-08-15 20:30 | Emergency (ER) | payer SELFPAY ==
[~2017-08-15 20:30] MED LIST changes: -ADDE15TA PO; +CLIN150C14 PO; -CYCL10TA PO; -HYDR-3583 PO; +NORC5TAB PO
[2017-08-15] MEDS ORDERED: SODIUM CHLOR 0.9% 1000 ML INJ 1,000 ML IV SCH (20:56)
[2017-08-15 20:57] VITALS: BP 125/76; PULSE 93; RESP 20; TEMP 98.2
[2017-08-15] MEDS ORDERED: SODIUM CHLORIDE 0.9% FLUSH 10 ML FLUSH IV FLUSH PRN (21:00)
[2017-08-15] MEDS ORDERED: KETOROLAC TROMETHAMINE 30 MG/ML (IVP) VIAL IV PUSH ONE (21:00)
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
[2017-08-15 21:24] LABS: AUTOMATED NEUTROPHIL # 11.4 TH/MM3 (1.8-7.7); BASOPHIL # 0.3 TH/MM3 (0-0.2); BASOPHIL % 1.6 % (0.0-2.0); EOSINOPHIL # 0.4 TH/MM3 (0-0.4); EOSINOPHIL % 2.5 % (0.0-4.0); HEMOGLOBIN 13.6 GM/DL (13.0-17.0); LYMPH % 20.7 % (9.0-44.0); LYMPHOCYTE # 3.5 TH/MM3 (1.0-4.8); MEAN CELL VOLUME 84.3 FL (80.0-100.0); MEAN CORPUSCULAR HEMOGLOBIN 27.9 PG (27.0-34.0); MEAN CORPUSCULAR HGB CONC 33.1 % (32.0-36.0); MEAN PLATELET VOLUME 8.2 FL (7.0-11.0); MONO % 6.9 % (0.0-8.0); MONOCYTE # 1.2 TH/MM3 (0-0.9); NEUT % 68.3 % (16.0-70.0); PLATELET COUNT 357 TH/MM3 (150-450); RED BLOOD COUNT 4.86 MIL/MM3 (4.50-5.90); RED CELL DISTRIBUTION WIDTH 14.3 % (11.6-17.2); WHITE BLOOD COUNT 16.8 TH/MM3 (4.0-11.0)
[2017-08-15 21:47] LABS: CHLORIDE 106 MEQ/L (98-107); SODIUM (NA) 139 MEQ/L (136-145)
[2017-08-15 21:50] LABS: ALBUMIN 4.1 GM/DL (3.4-5.0); BICARBONATE 26.8 MEQ/L (21.0-32.0); CALCIUM 9.3 MG/DL (8.5-10.1); GLUCOSE,RANDOM 102 MG/DL (74-106)
[2017-08-15 21:51] LABS: BLOOD UREA NITROGEN 10 MG/DL (7-18)
[2017-08-15 21:53] LABS: ALT (GPT) 43 U/L (12-78); AST (GOT) 20 U/L (15-37)
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
[2017-08-15 21:54] LABS: CREATININE 0.76 MG/DL (0.60-1.30); GLOMERULAR FILTRATION RATE 117 ML/MIN (>89)
[2017-08-15 21:55] LABS: TOTAL BILIRUBIN ADULT 0.2 MG/DL (0.2-1.0); TOTAL PROTEIN 7.9 GM/DL (6.4-8.2)
[2017-08-15 21:56] LABS: ALKALINE PHOSPHATASE 118 U/L (45-117)
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
[2017-08-15] MEDS ORDERED: POTASSIUM CHLORIDE 20 MEQ CONTROLLED RELEASE TAB PO ONE (22:45)
[2017-08-15] MEDS ORDERED: CEPHALEXIN MONOHYDRATE 500 MG CAP PO ONE (22:45)
[2017-08-15] MEDS ORDERED: SULFAMETHOXAZOLE-TRIMETHOPRIM DS 800-160 MG TAB PO ONE (22:45)
[2017-08-15] MEDS ORDERED: IOHEXOL 350 MG/ML 10 ML VIAL (for RAD DIAG) IVCONTRAST ONE (22:57)
[2017-08-15] MEDS ORDERED: CEPH-460 PO (23:07)
[2017-08-15] MEDS ORDERED: HYDR-3516 PO (23:07)
[2017-08-15] MEDS ORDERED: BACT800T5 PO (23:07)
[2017-08-15] MEDS ORDERED: MORPHINE SULFATE 4 MG/ML INJ IV PUSH ONE (23:15)
[2017-08-15 23:49] VITALS: BP 137/79; RESP 18; TEMP 98.1
== END 2017-08-15 23:51 | disposition home or self-care (01) ==
LOC: PHEFT 20:30
DX: L03.313 Cellulitis of chest wall (principal); E87.6 Hypokalemia; M25.562 Pain in left knee; F17.210 Nicotine dependence, cigarettes, uncomplicated
CPT/HCPCS: 71260; 73564; 80053; 85025; 96361; 96374; 96375; 99285; J1885; J2270; J7030; Q9967